=== PATIENT | female | born 1995 | race Two or more races ===

== ENCOUNTER 2016-09-09 07:05 | Inpatient (IN) | payer MEDICAID ==
[2016-09-09] MEDS ORDERED: Misoprostol 25 MCG (1/4 of 100 MCG) Tab ONE ×2 (07:34→07:44)
[2016-09-09] MEDS ORDERED: Sodium Chloride 0.9% 10 ML Syringe FLUSH PRN (08:00)
[2016-09-09] MEDS ORDERED: Nalbuphine 20 MG/1 ML Amp IVPUSH PRN (08:00)
[2016-09-09] MEDS ORDERED: Ondansetron 4 MG/2 ML SDV IVPUSH PRN ×2 (08:00→11:01)
[2016-09-09] MEDS ORDERED: Misoprostol 100 MCG Tab VAG PRN (08:00)
[2016-09-09] MEDS ORDERED: Oxytocin/Lactated Ringers 10 UNIT/1,000 ML BAG IV SCH ×2 (08:00→22:30)
--- NOTE | 2016-09-09 08:10 | PCM.LDHP ---
L&D History of Present Illness - General Date of Service: 09/09/16 Admit Problem/Dx: Patient Status Order with Admit Dx/Problem 09/09/16 08:01 Patient Status [ADT] Routine Admission Diagnosis/Problem Admission Diagnosis/Problem Normal Source of Information: Patient History Limitations: Reports: No limitations - History of Present Illness Introduction:: Patient is a 21 y/o at 40 6/7 wks presents for IOL for dates. Doing well today. No cramping or signs of labor. No other concerns. - Related Data Allergies/Adverse Reactions: Allergies Allergy/AdvReac Type Severity Reaction Status Date / Time No Known Allergies Allergy Verified 02/17/16 18:00 Home Medications: Home Meds . 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 LMP (Approximate): Social & Family History - Family History Family Medical History: Noncontributory - Tobacco Use Smoking Status *Q: Former Smoker Years of Tobacco use: 7 - Alcohol Use Alcohol Use History: No Days Per Week of Alcohol Use: 0 - Recreational Drug Use Recreational Drug Use: No H&P Review of Systems - Review of Systems: Review Of Systems: See Below General: Reports: no symptoms Pulmonary: Reports: No Symptoms Cardiovascular: Reports: no symptoms Gastrointestinal: Reports: No symptoms Genitourinary: Reports: no symptoms Musculoskeletal: Reports: no symptoms Psychiatric: Reports: no symptoms Neurological: Reports: No Symptoms L&D Exam - Exam Exam: See Below - Vital Signs Vital Signs: Last Vital Signs Temp 36.7 C 09/09/16 07:12 Pulse Resp 20 09/09/16 07:12 BP 120/65 09/09/16 07:12 Pulse Ox 97 09/09/16 07:12 Weight: 113.852 kg - OB Specific Contraction Intensity: Irritability movement: active heart tones: present heart tones per min: 140 Heart Rate (FHR) Variability: Moderate (6-25 bmp) Presentation: Vertex - Sánchez Score Sánchez Score Cervix Position: Midposition Sánchez Score Consistency: Soft Sánchez Score Effacement: 51-70% Sánchez Score Dilation: 1-2 cm Sánchez Score Infant's Station: -2 Sánchez Score Total: 7 - Exam General: alert, oriented, cooperative Lungs: Clear to auscultation, Normal respiratory effort Cardiovascular: regular rate, regular rhythm Abdomen: soft Genitourinary: Normal external exam Extremities: normal inspection Skin: warm, dry, intact - Problem List (1) 41 weeks gestation of SNOMED Code(s): 84390184 ICD Code: Z3A.41 - 41 WEEKS GESTATION OF Status: Acute Current Visit: Yes (2) Elective induction of labor planned SNOMED Code(s): 617792151 ICD Code: [id number] - Status: Acute Current Visit: Yes Problem List Initiated/Reviewed/Updated: Yes Orders Last 24hrs: Active Orders 24 hr Category Date Time Status Patient Status [ADT] Routine ADT 09/09/16 08:01 Ordered Communication Order [RC] ASDIRECTED Care 09/09/16 08:00 Ordered Communication Order [RC] ASDIRECTED Care 09/09/16 08:00 Ordered Communication Order [RC] ASDIRECTED Care 09/09/16 08:00 Ordered Monitoring [RC] INTERMITTENT Care 09/09/16 08:00 Ordered Notify Provider [RC] ASDIRECTED Care 09/09/16 08:00 Ordered Notify Provider [RC] PRN Care 09/09/16 08:00 Ordered Peripheral IV Care [RC] . DIRECTED Care 09/09/16 08:01 Ordered Up ad Joan [RC] ASDIRECTED Care 09/09/16 08:00 Ordered Vaginal Exam [RC] ASDIRECTED Care 09/09/16 08:00 Ordered Vital Signs [RC] ASDIRECTED Care 09/09/16 08:00 Ordered Regular Diet [DIET] Diet 09/09/16 Breakfast Ordered CBC W/O DIFF,HEMOGRAM [HEME] Routine Lab 09/09/16 08:00 Ordered TYPE AND SCREEN [BBK] Routine Lab 09/09/16 08:00 Ordered Lactated Ringers [Ringers, Lactated] 1,000 ml Med 09/09/16 08:00 Ordered IV ASDIRECTED Misoprostol [Cytotec] Med 09/09/16 08:00 Ordered 25 mcg VAG Q4H PRN Nalbuphine [Nubain] Med 09/09/16 08:00 Ordered 10 mg IVPUSH Q2H PRN Ondansetron [Zofran] Med 09/09/16 08:00 Ordered 4 mg IVPUSH Q4H PRN Oxytocin/Lactated Ringers [Pitocin in LR 10 Units/1,000 Med 09/09/16 08:00 Ordered ML] 10 unit in 1,000 ml IV TITRATE Sodium Chloride 0.9% [Saline Flush] Med 09/09/16 08:00 Ordered 10 ml FLUSH ASDIRECTED PRN Peripheral IV Insertion Adult [OM.PC] Routine Oth 09/09/16 08:00 Ordered Resuscitation Status Routine Resus Stat 09/09/16 08:00 Ordered Assessment/Plan Comment:: 21 y/o at 40 6/7 wks presents for IOL for dates * CBC and T&S * GBS negative, no need for antibiotics * Induction to be started with watson bulb and cytotec. Will switch to pitocin when cervix more favorable * Pain management per patient preference * Anticipate
[2016-09-09] MEDS ORDERED: fentaNYL 100 MCG/2 ML SDV EPIDUR PRN (11:01)
[2016-09-09] MEDS ORDERED: ePHEDrine 50 MG/ML SDV IVPUSH PRN (11:01)
[2016-09-09] MEDS ORDERED: diphenhydrAMINE 50 MG/ML SDV IVPUSH PRN (11:01)
[2016-09-09] MEDS ORDERED: Bupivacaine/fentaNYL/NS 100 ML Bag EPIDUR SCH (11:15)
--- NOTE | 2016-09-09 11:16 | PCM.PREANE ---
Preanesthetic Assessment - Anesthesia/Transfusion/Family Hx Anesthesia History: No Prior Anesthesia Transfusion History: No Prior Transfusion(s) - Review of Systems General: No Symptoms Pulmonary: No Symptoms Cardiovascular: No Symptoms Gastrointestinal: No symptoms Neurological: No Symptoms Other: Reports: None - Physical Assessment O2 Sat by Pulse Oximetry: 97 Respiratory Rate: 20 Vital Signs: Last Vital Signs Temp 98.0 F 09/09/16 07:12 Pulse Resp 20 09/09/16 07:12 BP 120/65 09/09/16 07:12 Pulse Ox 97 09/09/16 07:12 Height: 5 ft Weight: 113.852 kg ASA Class: 2 Mental Status: Alert & Oriented x3 Airway Class: Mallampati = 1 Dentition: Reports: Normal Dentition Thyro-Mental Finger Breadths: 3 Mouth Opening Finger Breadths: 3 ROM/Head Extension: Full Lungs: Clear to auscultation, Normal respiratory effort Cardiovascular: Regular Rate, Regular Rhythm, No Murmurs - Lab Values: Laboratory Last Values WBC 13.51 K/mm3 (3.98-10.04) H 09/09/16 08:16 RBC 3.92 M/mm3 (3.98-5.22) L 09/09/16 08:16 Hgb 11.6 gm/L (11.2-15.7) 09/09/16 08:16 Hct 34.6 % (34.1-44.9) 09/09/16 08:16 MCV 88.3 fl (79.4-94.8) 09/09/16 08:16 MCH 29.6 pg (25.6-32.2) 09/09/16 08:16 MCHC 33.5 g/dl (32.2-35.5) 09/09/16 08:16 RDW Std Deviation 40.4 fL (36.4-46.3) 09/09/16 08:16 Plt Count 211 K/mm3 (182-369) 09/09/16 08:16 MPV 11.2 fl (9.4-12.3) 09/09/16 08:16 Blood Type O POSITIVE 09/09/16 08:16 Gel Antibody Screen Negative 09/09/16 08:16 - Allergies Allergies/Adverse Reactions: Allergies Allergy/AdvReac Type Severity Reaction Status Date / Time No Known Allergies Allergy Verified 02/17/16 18:00 - Blood Blood Available: No - Acknowledgements Anesthesia Type Planned: Epidural Pt an Appropriate Candidate for the Planned Anesthesia: Yes Alternatives and Risks of Anesthesia Discussed w Pt/Guardian: Yes Pt/Guardian Understands and Agrees with Anesthesia Plan: Yes PreAnesthesia Questionnaire - Past Health History Medical/Surgical History: Denies Medical/Surgical History Respiratory History: Reports: Asthma Gastrointestinal History: Reports: GERD (with preg) 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 [No Known Home Meds] 02/17/16 [History] metroNIDAZOLE [Metrogel-Vaginal] 70 gm VG BEDTIME #5 gel.w.appl 02/17/16 [Rx] - CURRENT (IN HOUSE) MEDS Current Meds: Current Medications Diphenhydramine HCl (Benadryl) 25 mg IVPUSH Q6H PRN PRN Reason: Pruritis Ephedrine Sulfate (Ephedrine Sulfate) 5 mg IVPUSH ASDIRECTED PRN PRN Reason: Hypotension Fentanyl (Sublimaze) 100 mcg EPIDUR Q3H PRN PRN Reason: Pain Fentanyl/Bupivacaine HCl (Fentanyl/Bupivacaine/Ns 2 Mcg-0.125% 100 Ml) 100 ml EPIDUR ASDIRECTED TAL Lactated Ringer's (Ringers, Lactated) 1,000 mls @ 40 mls/hr IV ASDIRECTED TAL Oxytocin/Lactated Ringer's (Pitocin In Lr 10 Units/1,000 Ml) 10 unit in 1,000 mls @ 500 mls/hr IV TITRATE TAL PRN Reason: Protocol Misoprostol (Cytotec) 25 mcg VAG Q4H PRN PRN Reason: cervical ripening Stop: 09/09/16 16:01 Nalbuphine HCl (Nubain) 10 mg IVPUSH Q2H PRN PRN Reason: Pain (moderate 4-6) Ondansetron HCl (Zofran) 4 mg IVPUSH Q4H PRN PRN Reason: Nausea/Vomiting Ondansetron HCl (Zofran) 4 mg IVPUSH ONETIME PRN PRN Reason: Nausea/Vomiting Sodium Chloride (Saline Flush) 10 ml FLUSH ASDIRECTED PRN PRN Reason: Keep Vein Open Discontinued Medications Misoprostol (Cytotec) Confirm Administered Dose 25 mcg .ROUTE .STK-MED ONE Stop: 09/09/16 07:35 Last Admin: 09/09/16 07:51 Dose: 25 mcg Misoprostol (Cytotec) Confirm Administered Dose 25 mcg .ROUTE .STK-MED ONE Stop: 09/09/16 07:45 Last Admin: 09/09/16 10:08 Dose: Not Given Preanesthetic Assessment - ANESTHESIA/TRANSFUSION/FAMILY HX Family History of Anesthesia Reaction: No - PHYSICAL ASSESSMENT O2 Sat by Pulse Oximetry: 97 RR: 20 Vital Signs: Last Vital Signs Temp 98.0 F 09/09/16 07:12 Pulse Resp 20 09/09/16 07:12 BP 120/65 09/09/16 07:12 Pulse Ox 97 09/09/16 07:12 Height: 5 ft Weight: 113.852 kg - LAB Values: Laboratory Last Values WBC 13.51 K/mm3 (3.98-10.04) H 09/09/16 08:16 RBC 3.92 M/mm3 (3.98-5.22) L 09/09/16 08:16 Hgb 11.6 gm/L (11.2-15.7) 09/09/16 08:16 Hct 34.6 % (34.1-44.9) 09/09/16 08:16 MCV 88.3 fl (79.4-94.8) 09/09/16 08:16 MCH 29.6 pg (25.6-32.2) 09/09/16 08:16 MCHC 33.5 g/dl (32.2-35.5) 09/09/16 08:16 RDW Std Deviation 40.4 fL (36.4-46.3) 09/09/16 08:16 Plt Count 211 K/mm3 (182-369) 09/09/16 08:16 MPV 11.2 fl (9.4-12.3) 09/09/16 08:16 Blood Type O POSITIVE 09/09/16 08:16 Gel Antibody Screen Negative 09/09/16 08:16 - ALLERGIES Allergies/Adverse Reactions: Allergies Allergy/AdvReac Type Severity Reaction Status Date / Time No Known Allergies Allergy Verified 02/17/16 18:00
[2016-09-09] MEDS ORDERED: Misoprostol 25 MCG (1/4 of 100 MCG) Tab VAG PRN (11:42)
[2016-09-09] MEDS: Lactated Ringers 1,000 ML IV SCH ×6 (12:10→22:49)
--- NOTE | 2016-09-09 18:00 | PCM.PNLD ---
Labor Progress Note - VS & Meds Vital Signs: Last Vital Signs Temp 36.7 C 09/09/16 07:12 Pulse Resp 20 09/09/16 11:16 BP 120/65 09/09/16 07:12 Pulse Ox 97 09/09/16 11:16 Active Medications: Current Medications Diphenhydramine HCl (Benadryl) 25 mg IVPUSH Q6H PRN PRN Reason: Pruritis Ephedrine Sulfate (Ephedrine Sulfate) 5 mg IVPUSH ASDIRECTED PRN PRN Reason: Hypotension Fentanyl (Sublimaze) 100 mcg EPIDUR Q3H PRN PRN Reason: Pain Fentanyl/Bupivacaine HCl (Fentanyl/Bupivacaine/Ns 2 Mcg-0.125% 100 Ml) 100 ml EPIDUR ASDIRECTED TAL Lactated Ringer's (Ringers, Lactated) 1,000 mls @ 40 mls/hr IV ASDIRECTED TAL Last Admin: 09/09/16 16:04 Dose: 40 mls/hr Oxytocin/Lactated Ringer's (Pitocin In Lr 10 Units/1,000 Ml) 10 unit in 1,000 mls @ 500 mls/hr IV TITRATE [facility] PRN Reason: Protocol Misoprostol (Cytotec) 25 mcg VAG Q4H PRN PRN Reason: cervical ripening Stop: 09/09/16 19:43 Last Admin: 09/09/16 11:50 Dose: 25 mcg Nalbuphine HCl (Nubain) 10 mg IVPUSH Q2H PRN PRN Reason: Pain (moderate 4-6) Ondansetron HCl (Zofran) 4 mg IVPUSH Q4H PRN PRN Reason: Nausea/Vomiting Ondansetron HCl (Zofran) 4 mg IVPUSH ONETIME PRN PRN Reason: Nausea/Vomiting Sodium Chloride (Saline Flush) 10 ml FLUSH ASDIRECTED PRN PRN Reason: Keep Vein Open Discontinued Medications Misoprostol (Cytotec) Confirm Administered Dose 25 mcg .ROUTE .STK-MED ONE Stop: 09/09/16 07:35 Last Admin: 09/09/16 07:51 Dose: 25 mcg Misoprostol (Cytotec) Confirm Administered Dose 25 mcg .ROUTE .STK-MED ONE Stop: 09/09/16 07:45 Last Admin: 09/09/16 10:08 Dose: Not Given Misoprostol (Cytotec) 25 mcg VAG Q4H PRN PRN Reason: cervical ripening Stop: 09/09/16 16:01 - Uterine Contractions Uterine Monitoring Mode: External [place] Contraction Intensity: Irritability Uterine Resting Tone: Soft - Monitoring Monitor Mode: External Ultrasound Heart Rate (FHR) Baseline: 143 Heart Rate (FHR) Variability: Moderate (6-25 bmp) Decelerations: Intermittent (<50% x 20 min) Strip Review: Category I - Vaginal Exam Dilation (cm): 4 Station: -4 Cervical Position: Posterior - Labor Progress (Free Text) Labor Progress: [place] bulb out. 4 cm. Station high. AROM clear fluid. IUPC and FSE placed as it has been difficult to monitor and there was a period earlier this afternoon with occasional late decelerations but good variability. Post IUPC contractions q 1.2 minutes.
[2016-09-10] MEDS: Lactated Ringers 1,000 ML IV SCH (02:02)
--- NOTE | 2016-09-10 03:14 | PCM.DEL ---
L & D Note - General Info Date of Service: 09/10/16 - Delivery Note Labor: induced by ARM, induced by oxytocin Cervical Ripening Method: Balloon Device, Misoprostil Delivery Outcome: Livebirth Infant Delivery Method: Spontaneous Vaginal Delivery Infant Delivery Mode: Spontaneous Presentation: Vertex Nuchal cord: none Anesthesia Type: Epidural Amniotic Fluid Description: Clear Episiotomy Type: None Laceration: 1st degree Suture type: vicryl Suture size: 3-0 Placenta: intact, spontaneous Cord: 3 vessels Resuscitation needed: No Provider: Hermann Eli Score 1 min: 8 Score 5 min: 9 Delivery Comments (Free Text/Narrative):: Patient presented for IOL for post dates. Watson bulb and cytotec induction. AROM clear fluid after watson bulb expelled. Increased pitocin. Epidural for anesthesia. Progressed to complete with overall reassuring FHT. Stage 2- head delivered in controlled manner over intact perineum. Body and shoulders followed without difficulty. Mom to abdomen. Cord clamped and cut. Spontaneous cry. Cord blood collected. Placenta spontaneous intact. Small 1degree MLL repaired with 3-0 vicryl. - Patient Data Vitals - most recent: Last Vital Signs Temp 36.7 C 09/09/16 07:12 Pulse Resp 20 09/09/16 11:16 BP 120/65 09/09/16 07:12 Pulse Ox 97 09/09/16 11:16 Weight - most recent: 113.852 kg I&O - last 24 hours: Intake & Output 09/09/16 09/09/16 09/10/16 14:59 22:59 06:59 Intake Total 0 Balance 0 Lab Results last 24 hrs: Laboratory Results - last 24 hr 09/09/16 09/09/16 Range/Units 08:16 08:16 WBC 13.51 H (3.98-10.04) K/mm3 RBC 3.92 L (3.98-5.22) M/mm3 Hgb 11.6 (11.2-15.7) gm/L Hct 34.6 (34.1-44.9) % MCV 88.3 (79.4-94.8) fl MCH 29.6 (25.6-32.2) pg MCHC 33.5 (32.2-35.5) g/dl RDW Std Deviation 40.4 (36.4-46.3) fL Plt Count 211 (182-369) K/mm3 MPV 11.2 (9.4-12.3) fl Blood Type O POSITIVE Gel Antibody Screen Negative Med Orders - Current: Current Medications Diphenhydramine HCl (Benadryl) 25 mg IVPUSH Q6H PRN PRN Reason: Pruritis Ephedrine Sulfate (Ephedrine Sulfate) 5 mg IVPUSH ASDIRECTED PRN PRN Reason: Hypotension Fentanyl (Sublimaze) 100 mcg EPIDUR Q3H PRN PRN Reason: Pain Last Admin: 09/09/16 19:52 Dose: 100 mcg Fentanyl/Bupivacaine HCl (Fentanyl/Bupivacaine/Ns 2 Mcg-0.125% 100 Ml) 100 ml EPIDUR ASDIRECTED TAL Last Admin: 09/09/16 19:53 Dose: 100 ml Lactated Ringer's (Ringers, Lactated) 1,000 mls @ 40 mls/hr IV ASDIRECTED TAL Last Admin: 09/10/16 02:02 Dose: 40 mls/hr Oxytocin/Lactated Ringer's (Pitocin In Lr 10 Units/1,000 Ml) 10 unit in 1,000 mls @ 500 mls/hr IV TITRATE TAL PRN Reason: Protocol Oxytocin/Lactated Ringer's (Pitocin In Lr 10 Units/1,000 Ml) 10 unit in 1,000 mls @ 12 mls/hr IV TITRATE TAL; 2 MUNITS/MIN PRN Reason: Protocol Last Titration: 09/10/16 01:25 Dose: 0 munits/min, 0 mls/hr Nalbuphine HCl (Nubain) 10 mg IVPUSH Q2H PRN PRN Reason: Pain (moderate 4-6) Ondansetron HCl (Zofran) 4 mg IVPUSH Q4H PRN PRN Reason: Nausea/Vomiting Ondansetron HCl (Zofran) 4 mg IVPUSH ONETIME PRN PRN Reason: Nausea/Vomiting Sodium Chloride (Saline Flush) 10 ml FLUSH ASDIRECTED PRN PRN Reason: Keep Vein Open Discontinued Medications Misoprostol (Cytotec) Confirm Administered Dose 25 mcg .ROUTE .STK-MED ONE Stop: 09/09/16 07:35 Last Admin: 09/09/16 07:51 Dose: 25 mcg Misoprostol (Cytotec) Confirm Administered Dose 25 mcg .ROUTE .STK-MED ONE Stop: 09/09/16 07:45 Last Admin: 09/09/16 10:08 Dose: Not Given Misoprostol (Cytotec) 25 mcg VAG Q4H PRN PRN Reason: cervical ripening Stop: 09/09/16 16:01 Misoprostol (Cytotec) 25 mcg VAG Q4H PRN PRN Reason: cervical ripening Stop: 09/09/16 19:43 Last Admin: 09/09/16 11:50 Dose: 25 mcg - Problem List Review Problem List Initiated/Reviewed/Updated: Yes - My Orders Last 24 Hours: My Active Orders 09/09/16 22:30 Oxytocin/Lactated Ringers [Pitocin in LR 10 Units/1,000 ML] 10 unit in 1,000 ml IV TITRATE 09/10/16 02:53 Patient Status Manage Transfer [TRANSFER] Routine - Plan Plan:: 21 y/o at 40 6/7 wks presented for IOL for dates -routine cares
[2016-09-10] MEDS ORDERED: Docusate Sodium 100 MG Cap PO PRN (03:56)
[2016-09-10] MEDS ORDERED: Lanolin 100% Cream 7 GM Tube TOP PRN (03:56)
[2016-09-10] MEDS ORDERED: Witch Hazel Medicated Pads 100/Jar TOP PRN (03:56)
[2016-09-10] MEDS ORDERED: Benzocaine/Menthol 20%-0.5% Spray 56 GM Canister TOP PRN (03:56)
--- NOTE | 2016-09-10 08:43 | PCM48HPAN ---
Post Anesthesia Note - EVALUATION WITHIN 48HRS OF ANESTHETIC Vital Signs in Normal Range: Yes Patient Participated in Evaluation: Yes Respiratory Function Stable: Yes Airway Patent: Yes Cardiovascular Function Stable: Yes Hydration Status Stable: Yes Pain Control Satisfactory: Yes Nausea and Vomiting Control Satisfactory: Yes Mental Status Recovered: Yes
[2016-09-10] MEDS: Ibuprofen 600 MG Tab PO PRN ×2 (14:08→20:02)
[2016-09-11 05:33] VITALS: BP 120/64
[2016-09-11] MEDS ORDERED: Pneumococcal Polyvalent-23 Vaccine 0.5 ML SDV SUBCUT ONE (07:02)
--- NOTE | 2016-09-11 07:06 | PCM.DCSUM1 ---
Discharge Summary - Discharge Data Discharge Date: 09/11/16 Discharge Disposition: Home, Self-Care 01 Condition: Good - Patient Instructions Diet: Usual Diet as Tolerated Activity: No Strenuous Activities Driving: May Drive Today Notify Provider of: Fever, Increased Pain, Swelling and Redness, Drainage, Nausea and/or Vomiting - Discharge Plan Home Medications: Home Meds . [No Known Home Meds] 02/17/16 [History] metroNIDAZOLE [Metrogel-Vaginal] 70 gm VG BEDTIME #5 gel.w.appl 02/17/16 [Rx] Patient Handouts: Smoking Cessation, Tips for Success, [id number], Smoking Hazards Referrals: Lanie Alexander MD [Primary Care Provider] - (6 ) - Discharge Summary/Plan Comment DC Time >30 min.: No - General Info Date of Service: 09/11/16 Functional Status: Reports: pain controlled - Review of Systems General: Reports: No Symptoms HEENT: Reports: no symptoms Pulmonary: Reports: no symptoms Cardiovascular: Reports: No Symptoms Gastrointestinal: Reports: No symptoms Genitourinary: Reports: no symptoms Musculoskeletal: Reports: no symptoms Skin: Reports: no symptoms Neurological: Reports: No Symptoms Psychiatric: Reports: no symptoms - Patient Data Vitals - Most Recent: Last Vital Signs Temp 36.6 C 09/11/16 05:20 Pulse 79 09/11/16 05:20 Resp 15 09/11/16 05:20 BP 120/64 09/11/16 05:20 Pulse Ox 99 09/11/16 05:20 Weight - Most Recent: 113.852 kg Med Orders - Current: Current Medications Benzocaine/Menthol (Dermoplast Pain Relief [place]) 0 gm TOP ASDIRECTED PRN PRN Reason: Perineal Comfort Measure Diphenhydramine HCl (Benadryl) 25 mg IVPUSH Q6H PRN PRN Reason: Pruritis Docusate Sodium (Colace) 100 mg PO BID PRN PRN Reason: Constipation Emollient Ointment (Lansinoh Hpa) 0 gm TOP ASDIRECTED PRN PRN Reason: Sore Nipples Last Admin: 09/10/16 14:29 Dose: 1 applic Ephedrine Sulfate (Ephedrine Sulfate) 5 mg IVPUSH ASDIRECTED PRN PRN Reason: Hypotension Fentanyl (Sublimaze) 100 mcg EPIDUR Q3H PRN PRN Reason: Pain Last Admin: 09/09/16 19:52 Dose: 100 mcg Fentanyl/Bupivacaine HCl (Fentanyl/Bupivacaine/Ns 2 Mcg-0.125% 100 Ml) 100 ml EPIDUR ASDIRECTED TAL Last Admin: 09/09/16 19:53 Dose: 100 ml Lactated Ringer's (Ringers, Lactated) 1,000 mls @ 40 mls/hr IV ASDIRECTED TAL Last Admin: 09/10/16 02:02 Dose: 40 mls/hr Oxytocin/Lactated Ringer's (Pitocin In Lr 10 Units/1,000 Ml) 10 unit in 1,000 mls @ 500 mls/hr IV TITRATE TAL PRN Reason: Protocol Oxytocin/Lactated Ringer's (Pitocin In Lr 10 Units/1,000 Ml) 10 unit in 1,000 mls @ 12 mls/hr IV TITRATE TAL; 2 MUNITS/MIN PRN Reason: Protocol Last Titration: 09/10/16 01:25 Dose: 0 munits/min, 0 mls/hr Ibuprofen (Motrin) 600 mg PO Q6H PRN PRN Reason: Mild pain or fever Last Admin: 09/10/16 20:02 Dose: 600 mg Nalbuphine HCl (Nubain) 10 mg IVPUSH Q2H PRN PRN Reason: Pain (moderate 4-6) Ondansetron HCl (Zofran) 4 mg IVPUSH Q4H PRN PRN Reason: Nausea/Vomiting Ondansetron HCl (Zofran) 4 mg IVPUSH ONETIME PRN PRN Reason: Nausea/Vomiting Pneumococcal Polyvalent Vaccine (Pneumovax 23) 0.5 ml SUBCUT .ONCE ONE Stop: 09/11/16 07:03 Sodium Chloride (Saline Flush) 10 ml FLUSH ASDIRECTED PRN PRN Reason: Keep Vein Open Witch Vera (Tucks) 1 pad TOP ASDIRECTED PRN PRN Reason: Hemorrhoid pain Discontinued Medications Misoprostol (Cytotec) Confirm Administered Dose 25 mcg .ROUTE .STK-MED ONE Stop: 09/09/16 07:35 Last Admin: 09/09/16 07:51 Dose: 25 mcg Misoprostol (Cytotec) Confirm Administered Dose 25 mcg .ROUTE .STK-MED ONE Stop: 09/09/16 07:45 Last Admin: 09/09/16 10:08 Dose: Not Given Misoprostol (Cytotec) 25 mcg VAG Q4H PRN PRN Reason: cervical ripening Stop: 09/09/16 16:01 Misoprostol (Cytotec) 25 mcg VAG Q4H PRN PRN Reason: cervical ripening Stop: 09/09/16 19:43 Last Admin: 09/09/16 11:50 Dose: 25 mcg - Exam General: Reports: alert, oriented HEENT: Reports: Pupils equal, Pupils reactive, EOMI, Mucous membr. moist/pink Neck: Reports: supple Lungs: Reports: Clear to auscultation, Normal respiratory effort Cardiovascular: Reports: Regular Rate, Regular Rhythm Abdomen: Reports: bowel sounds present, soft, no tenderness, no distension (Female) Exam: Normal external exam, Normal speculum exam, Normal bimanual exam Extremities: Reports: no edema, normal pulses Skin: Reports: warm, dry, intact Wound/Incisions: Reports: healing well Neurological: Reports: no new focal deficit Psy/Mental Status: Reports: alert, normal affect, normal mood *Q Meaningful Use (DIS) - VTE *Q VTE Criteria *Q: - Stroke *Q Stroke Criteria *Q: - AMI *Q AMI Criteria *Q:
[2016-09-11] MEDS ORDERED: Bupivacaine 0.25% 10 ML SDV ONE (09:00)
== END 2016-09-11 10:45 | disposition home or self-care (01) | DRG 775 ==
LOC: JD.OBCHECK 07:05 → JD.OB 07:11 → OBSVTOIN 09-10 02:30
PROVIDERS: ADMIT Obstetrics & Gynecology; ATTEND Obstetrics & Gynecology
PROC: 10E0XZZ Delivery of Products of Conception, External Approach (ICD-10-PCS; principal; 2016-09-10)
PROC: 0HQ9XZZ Repair Perineum Skin, External Approach (ICD-10-PCS; 2016-09-10)
PROC: 3E033VJ Introduction of Other Hormone into Peripheral Vein, Percutaneous Approach (ICD-10-PCS; 2016-09-10)
PROC: 10907ZC Drainage of Amniotic Fluid, Therapeutic from Products of Conception, Via Natural or Artificial Opening (ICD-10-PCS; 2016-09-10)
PROC: 00HU33Z Insertion of Infusion Device into Spinal Canal, Percutaneous Approach (ICD-10-PCS; 2016-09-10)
PROC: 3E0R3CZ (ICD-10-PCS; 2016-09-10)
DX: O48.0 Post-term pregnancy (principal); Z3A.41 41 weeks gestation of pregnancy; O70.0 First degree perineal laceration during delivery; Z37.0 Single live birth; Z87.891 Personal history of nicotine dependence
CPT/HCPCS: 01967; 36415; 85027; 86850; 86900; 86901; A9270-GY; J2590; J3010; J7120

== ENCOUNTER 2018-08-18 15:14 | Emergency (ER) | payer MEDICAID ==
[2018-08-18 15:43] VITALS: BP 107/60
--- NOTE | 2018-08-18 16:06 | EDM.PDOC ---
<Sabrina Poe - Last Filed: 08/18/18 16:06> ED HPI GENERAL MEDICAL PROBLEM - General Chief Complaint: Skin Complaint Stated Complaint: RASH ON FACE AND NECK Time Seen by Provider: 08/18/18 15:44 Source of Information: Reports: Patient History Limitations: Reports: No Limitations, Altered Mental Status - History of Present Illness INITIAL COMMENTS - FREE TEXT/NARRATIVE: 23-year-old female presents emergency room chief complaints of "rash on her face." She states that earlier she vomited quite heavily. She states that about 12:00 she noticed what she thinks is a rash on her face. She denies any other symptoms she denies headache chills fever or difficulty swallowing or breathing. She does report that she is 3 months . She reports that she' s been healthy otherwise. She's not been around any sick contacts. Onset: Today, Sudden Onset Date: 08/18/18 Onset Time: 12:00 Duration: Hour(s): Location: Reports: Face Treatments LITIGATION SPECIALIST: Reports: Other (see below) Other Treatments LITIGATION SPECIALIST: none - Related Data Allergies Allergy/AdvReac Type Severity Reaction Status Date / Time No Known Allergies Allergy Verified 02/17/16 18:00 Home Meds: Home Meds . [No Known Home Meds] 02/17/16 [History] Past Medical History - Past Health History Medical/Surgical History: Denies Medical/Surgical History Respiratory History: Reports: Asthma Gastrointestinal History: Reports: GERD [employer] History: Reports: Other [employer] History: 2013 Psychiatric History: Reports: None Oncologic (Cancer) History: Reports: None - Past Surgical History Respiratory Surgical History: Reports: None - History Comment History Comment: vits Social & Family History - Family History Family Medical History: Noncontributory - Tobacco Use Smoking Status *Q: Never Smoker - Caffeine Use Caffeine Use: Reports: Tea - Recreational Drug Use Recreational Drug Use: No ED ROS GENERAL - Review of Systems Review Of Systems: ROS reveals no pertinent complaints other than HPI. Constitutional: Denies: Fever, Chills HEENT: Reports: No Symptoms. Denies: Throat Pain, Throat Swelling Respiratory: Reports: No Symptoms. Denies: Shortness of Breath Cardiovascular: Denies: Chest Pain Skin: Reports: Other ("Rash on her face.") ED EXAM, SKIN/RASH Exam Limited By: No Limitations General Appearance: Alert, WD/WN, No Apparent Distress Ears: Normal External Exam, Normal Canal, Hearing Grossly Normal, Normal TMs Nose: Normal Inspection, Normal Mucosa, No Blood Throat/Mouth: Normal Inspection, Normal Lips, Normal Teeth, Normal Gums, Normal Oropharynx, Normal Voice, No Airway Compromise Head: Atraumatic, Normocephalic Neck: Normal Inspection, Supple, Non-Tender, Full Range of Motion Respiratory/Chest: No Respiratory Distress, Lungs Clear, Normal Breath Sounds, No Accessory Muscle Use, Chest Non-Tender Cardiovascular: Normal Peripheral Pulses, Regular Rate, Rhythm, No Edema, No Gallop, No JVD, No Murmur, No Rub Neurological: Alert, Oriented, CN II-XII Intact, Normal Cognition, Normal Gait, Normal Reflexes, No Motor/Sensory Deficits Psychiatric: Normal Affect, Normal Mood Skin: Warm, Dry, Intact, Petechiae (Facial blanchable petechiae ), Other Location, Skin: Face Characteristics: Macular Lymphatic: No Adenopathy Course - Vital Signs Last Recorded V/S: Last Vital Signs Temp 36.0 C 08/18/18 15:42 Pulse 81 08/18/18 15:42 Resp 20 08/18/18 15:42 BP 107/60 08/18/18 15:42 Pulse Ox 100 08/18/18 15:42 - Re-Assessments/Exams Free Text/Narrative Re-Assessment/Exam: 08/18/18 16:08 Did not feel the patient needs further tests at this time. I feel that her petechia in her face is due to hyperemesis episode earlier today. Departure - Departure Disposition: Home, Self-Care 01 Condition: Good Clinical Impression: Perifollicular petechiae of skin - Discharge Information *PRESCRIPTION DRUG MONITORING PROGRAM REVIEWED*: Not Applicable *COPY OF PRESCRIPTION DRUG MONITORING REPORT IN PATIENT DUONG: Not Applicable Referrals: Lanie Alexander MD [Primary Care Provider] - Forms: ED Department Discharge Additional Instructions: Given diagnoses petechiae to her face. I feel that this is due to her hyperemesis that she had earlier today. This condition will improve over time. I suggested to follow-up with her PCP. Do not hesitate to return to the emergency room for any new or acutely worsening symptoms. <Herberth Mckeon - Last Filed: 08/18/18 17:02> ED EXAM, SKIN/RASH Exam: See Below Course - Re-Assessments/Exams Free Text/Narrative Re-Assessment/Exam: 08/18/18 17:01 I personally performed evaluation and was involved with medical decision making have reviewed the history physical as well Departure - Departure Time of Disposition: 17:02
== END 2018-08-18 16:37 | disposition home or self-care (01) ==
LOC: JD.ED 15:14
DX: R23.3 Spontaneous ecchymoses (principal)
CPT/HCPCS: 99282

== ENCOUNTER 2018-09-03 06:27 | Emergency (ER) | payer MEDICAID ==
[2018-09-03 06:42] VITALS: BP 112/75
[2018-09-03] MEDS ORDERED: Albuterol 0.083% 2.5 MG/3 ML Neb Soln NEB ONE (07:06)
--- NOTE | 2018-09-03 07:14 | EDM.PDOC ---
ED HPI GENERAL MEDICAL PROBLEM - General Chief Complaint: Respiratory Problem Stated Complaint: WHEEZING AND SOB 14 WEEKS PREG Time Seen by Provider: 09/03/18 06:58 Source of Information: Reports: Patient, RN Notes Reviewed - History of Present Illness INITIAL COMMENTS - FREE TEXT/NARRATIVE: 23 year old female comes in with onset of wheezing last night, continued wheezing this morning. Has not been ill with cough, fever, sore throat or nasal sonu. Hx of asthma but has not had sx for many years. Is about 14 wks . 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 Denies: Cough Cardiovascular: Denies: Chest Pain GI/Abdominal: Denies: Abdominal Pain, Nausea, Vomiting Musculoskeletal: Reports: No Symptoms Skin: Reports: No Symptoms Neurological: Reports: No Symptoms ED EXAM, GENERAL - Physical Exam Exam: See Below General Appearance: Alert, No Apparent Distress Throat/Mouth: Normal Inspection, Normal Oropharynx Head: Atraumatic. No: Facial Swelling Neck: Supple. No: Lymphadenopathy (L), Lymphadenopathy (R) Respiratory/Chest: Respiratory Distress (mild tachypnea), Wheezing (chasity mild) Cardiovascular: Regular Rate, Rhythm GI/Abdominal: Soft, Non-Tender Extremities: Normal Inspection. No: Pedal Edema Neurological: Alert, Oriented, No Motor/Sensory Deficits Skin Exam: Warm, Dry, Normal Color Course - Vital Signs Last Recorded V/S: Last Vital Signs Temp 97.6 F 09/03/18 06:37 Pulse 80 09/03/18 06:37 Resp 20 09/03/18 06:37 BP 112/75 09/03/18 06:37 Pulse Ox 98 09/03/18 07:23 - Orders/Labs/Meds Orders: Active Orders 24 hr Category Date Time Status RT Aerosol Therapy [RC] ASDIRECTED Care 09/03/18 07:06 Active Meds: Medications Discontinued Medications Generic Name Dose Route Start Last Admin Trade Name Freq PRN Reason Stop Dose Admin Albuterol 2.5 mg 09/03/18 07:06 09/03/18 07:23 Proventil Neb Soln NEB 09/03/18 07:07 2.5 mg ONETIME ONE Administration Departure - Departure Time of Disposition: 07:54 Disposition: Home, Self-Care 01 Clinical Impression: Exacerbation of asthma Qualifiers: Asthma severity: unspecified severity Asthma persistence: unspecified Qualified Code(s): J45.901 - Unspecified asthma with (acute) exacerbation - Discharge Information Prescriptions: Albuterol Sulfate [Albuterol Sulfate Hfa] 8.5 gm IH Q4HR PRN #1 hfa.aer.ad PRN Reason: Wheezing Instructions: Asthma, Adult, [id number] Referrals: Lanie Alexander MD [Primary Care Provider] - Forms: ED Department Discharge Additional Instructions: albuterol inhaler 2 puffs q 4 to 6 hr if needed for further wheezing or difficulty breathing. Follow up clinic if not much better within 3 to 4 days as expected. Reurn to ED as needed if symptoms worsening in any way. - My Orders Last 24 Hours: My Active Orders 09/03/18 07:06 RT Aerosol Therapy [RC] ASDIRECTED - Assessment/Plan Last 24 Hours: My Active Orders 09/03/18 07:06 RT Aerosol Therapy [RC] ASDIRECTED
== END 2018-09-03 08:08 | disposition home or self-care (01) ==
LOC: JD.ED 06:27
DX: J45.901 Unspecified asthma with (acute) exacerbation (principal)
CPT/HCPCS: 94640; 99283; 99283-25

== ENCOUNTER 2019-03-01 13:39 | Inpatient (IN) | payer MEDICAID ==
[~2019-03-01 13:39] MED LIST: Bupivacaine 0.25% 10 ML SDV ONE
[2019-03-01] MEDS ORDERED: Ondansetron 4 MG/2 ML SDV IVPUSH PRN (14:37)
[2019-03-01] MEDS ORDERED: Nalbuphine 10 MG/1 ML Vial IVPUSH PRN (14:37)
[2019-03-01] MEDS ORDERED: Sodium Chloride 0.9% 10 ML Syringe FLUSH PRN (14:37)
--- NOTE | 2019-03-01 14:39 | PCM.LDHP ---
L&D History of Present Illness - General Date of Service: 03/01/19 Admit Problem/Dx: Patient Status Order with Admit Dx/Problem 03/01/19 13:52 Patient Status [ADT] Routine 03/01/19 14:37 Patient Status [ADT] Routine Admission Diagnosis/Problem Admission Diagnosis/Problem Source of Information: Patient History Limitations: Reports: No Limitations - History of Present Illness Introduction:: Patient is a 23 y/o at 40 0/7 wks gestation who presents in labor. Seen earlier this week and only 0.5-1cm. Contractions started this AM around 0400. Have been getting stronger since onset. Now about every 5 minutes. 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 LMP (Approximate): - Past Surgical History Other Surgical History Comment: No past surgical history Social & Family History - Family History Family Medical History: Noncontributory - Tobacco Use Smoking Status *Q: Former Smoker - Caffeine Use Caffeine Use: Reports: Tea - Alcohol Use Alcohol Use History: No - Recreational Drug Use Recreational Drug Use: No H&P Review of Systems - Review of Systems: Review Of Systems: See Below General: Reports: No Symptoms Pulmonary: Reports: No Symptoms Cardiovascular: Reports: No Symptoms Gastrointestinal: Reports: Abdominal Pain (contractions ) Genitourinary: Reports: No Symptoms Musculoskeletal: Reports: No Symptoms Psychiatric: Reports: No Symptoms Neurological: Reports: No Symptoms L&D Exam - Exam Exam: See Below - Vital Signs Vital Signs: Last Vital Signs Temp 36.7 C 03/01/19 13:56 Pulse 82 03/01/19 13:56 Resp 18 03/01/19 13:56 BP 128/77 03/01/19 13:56 Pulse Ox 97 03/01/19 13:56 - OB Specific Contraction Intensity: Moderate Movement: Active Heart Tones: Present Heart Tones per Min: 130 Heart Rate (FHR) Variability: Moderate (6-25 bmp) Presentation: Vertex - Sánchez Score Sánchez Score Cervix Position: Midposition Sánchez Score Consistency: Soft Sánchez Score Effacement: 51-70% Sánchez Score Dilation: 3-4 cm Sánchez Score Infant's Station: -2 Sánchez Score Total: 8 - Exam General: Alert, Oriented, Cooperative Lungs: Clear to Auscultation, Normal Respiratory Effort Cardiovascular: Regular Rate, Regular Rhythm GI/Abdominal Exam: Soft, Non-Tender Genitourinary: Normal external exam Extremities: Normal Inspection Skin: Warm, Dry, Intact - Problem List (1) 40 weeks gestation of SNOMED Code(s): 78650247 ICD Code: Z3A.40 - 40 WEEKS GESTATION OF Status: Acute Current Visit: Yes Problem List Initiated/Reviewed/Updated: Yes Orders Last 24hrs: Active Orders 24 hr Category Date Time Status Patient Status [ADT] Routine ADT 03/01/19 13:52 Active Patient Status [ADT] Routine ADT 03/01/19 14:37 Ordered Activity as Tolerated [RC] PFP Care 03/01/19 14:37 Ordered Communication Order [RC] ASDIRECTED Care 03/01/19 14:37 Ordered Heart Tones [RC] ASDIRECTED Care 03/01/19 14:38 Ordered Non Stress Test [RC] PER UNIT ROUTINE Care 03/01/19 13:52 Active Notify Provider [RC] PFP Care 03/01/19 14:37 Ordered Notify Provider [RC] PRN Care 03/01/19 14:37 Ordered Peripheral IV Care [RC] . DIRECTED Care 03/01/19 14:38 Ordered Vital Signs [RC] PER UNIT ROUTINE Care 03/01/19 13:52 Active Vital Signs [RC] PER UNIT ROUTINE Care 03/01/19 14:37 Ordered Regular Diet [DIET] Diet 03/01/19 Lunch Ordered CBC W/O DIFF,HEMOGRAM [HEME] Routine Lab 03/01/19 14:37 Ordered RAPID PLASMA REAGIN,RPR [CHEM] Routine Lab 03/01/19 14:37 Ordered TYPE AND SCREEN [BBK] Routine Lab 03/01/19 14:37 Ordered Lactated Ringers [Ringers, Lactated] 1,000 ml Med 03/01/19 14:45 Ordered IV ASDIRECTED Nalbuphine [Nubain] Med 03/01/19 14:37 Ordered 10 mg IVPUSH Q2H PRN Ondansetron [Zofran] Med 03/01/19 14:37 Ordered 4 mg IVPUSH Q4H PRN Oxytocin/Lactated Ringers [Pitocin in LR 10 Units/1,000 Med 03/01/19 14:45 Ordered ML] 10 unit in 1,000 ml IV .CONTINUOUS Sodium Chloride 0.9% [Saline Flush] Med 03/01/19 14:37 Ordered 10 ml FLUSH ASDIRECTED PRN Electronic Heart Tones Ext w TOCO [WOMSER] Oth 03/01/19 14:37 Ordered Routine Electronic Heart Tones Internal [WOMSER] Per Unit Ot 03/01/19 14:37 Ordered Routine Peripheral IV Insertion Adult [OM.PC] Routine Ot 03/01/19 14:37 Ordered Resuscitation Status Routine Resus Stat 03/01/19 13:52 Ordered Assessment/Plan Comment:: 23 y/o at 40 0/7 wks who presents in labor. Was only 0.5-1 cm earlier this week. Now 3-4 cm. * Labs * GBS negative, no need for antibiotics * Pain management per patient preference * Anticipate
[2019-03-01] MEDS ORDERED: Oxytocin/Lactated Ringers 10 UNIT/1,000 ML BAG IV SCH (14:45)
[2019-03-01] MEDS: Lactated Ringers 1,000 ML IV SCH ×2 (15:39→16:02)
[2019-03-01] MEDS ORDERED: diphenhydrAMINE 50 MG/ML SDV IVPUSH PRN (15:52)
[2019-03-01] MEDS ORDERED: fentaNYL 100 MCG/2 ML SDV EPIDUR PRN (15:52)
[2019-03-01] MEDS ORDERED: ePHEDrine 50 MG/ML SDV IVPUSH PRN (15:52)
[2019-03-01] MEDS ORDERED: fentaNYL/Bupivacaine in NS PF 2 MCG-0.125% 250 ML Premix EPIDUR PRN (15:52)
--- NOTE | 2019-03-01 16:44 | PCM.PREANE ---
Preanesthetic Assessment - Anesthesia/Transfusion/Family Hx Anesthesia History: No Prior Anesthesia Family History of Anesthesia Reaction: No Transfusion History: No Prior Transfusion(s) - Review of Systems General: No Symptoms Pulmonary: No Symptoms (Asthma, controlled. ) Cardiovascular: No Symptoms Gastrointestinal: Other (GERD) Neurological: No Symptoms Other: Reports: None (Morbid Obesity BMI 49.8) - Physical Assessment Vital Signs: Last Vital Signs Temp 36.7 C 03/01/19 13:56 Pulse 82 03/01/19 13:56 Resp 18 03/01/19 13:56 BP 128/77 03/01/19 13:56 Pulse Ox 97 03/01/19 13:56 Height: 1.52 m Weight: 115.666 kg ASA Class: 3 Mental Status: Alert & Oriented x3 Airway Class: Mallampati = 2 Dentition: Reports: Normal Dentition Thyro-Mental Finger Breadths: 3 Mouth Opening Finger Breadths: 3 ROM/Head Extension: Full Lungs: Clear to Auscultation, Normal Respiratory Effort Cardiovascular: Regular Rate, Regular Rhythm - Lab Values: Laboratory Last Values WBC 14.30 K/mm3 (3.98-10.04) H 03/01/19 14:50 RBC 4.21 M/mm3 (3.98-5.22) 03/01/19 14:50 Hgb 12.1 gm/dl (11.2-15.7) 03/01/19 14:50 Hct 36.3 % (34.1-44.9) 03/01/19 14:50 MCV 86.2 fl (79.4-94.8) 03/01/19 14:50 MCH 28.7 pg (25.6-32.2) 03/01/19 14:50 MCHC 33.3 g/dl (32.2-35.5) 03/01/19 14:50 RDW Std Deviation 40.8 fL (36.4-46.3) 03/01/19 14:50 Plt Count 256 K/mm3 (182-369) 03/01/19 14:50 MPV 11.3 fl (9.4-12.3) 03/01/19 14:50 Blood Type O POSITIVE 03/01/19 14:50 Gel Antibody Screen Negative 03/01/19 14:50 - Allergies Allergies/Adverse Reactions: Allergies Allergy/AdvReac Type Severity Reaction Status Date / Time No Known Allergies Allergy Verified 02/17/16 18:00 - Acknowledgements Anesthesia Type Planned: Epidural Pt an Appropriate Candidate for the Planned Anesthesia: Yes Alternatives and Risks of Anesthesia Discussed w Pt/Guardian: Yes Pt/Guardian Understands and Agrees with Anesthesia Plan: Yes PreAnesthesia Questionnaire - Past Health History Medical/Surgical History: Denies Medical/Surgical History Respiratory History: Reports: Asthma Gastrointestinal History: Reports: GERD 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 Psychiatric History: Reports: None Oncologic (Cancer) History: Reports: None - Past Surgical History Other Surgical History Comment: No past surgical history - History Comment History Comment: vits - SUBSTANCE USE Smoking Status *Q: Former Smoker Recreational Drug Use History: No - HOME MEDS Home Medications: Home Meds Albuterol Sulfate [Albuterol Sulfate Hfa] 8.5 gm IH Q4HR PRN #1 hfa.aer.ad 09/03 [Rx] - CURRENT (IN HOUSE) MEDS Current Meds: Current Medications Diphenhydramine HCl (Benadryl) 25 mg IVPUSH Q6H PRN PRN Reason: pruritis Ephedrine Sulfate (Ephedrine Sulfate) 5 mg IVPUSH ASDIRECTED PRN PRN Reason: Hypotension Fentanyl (Sublimaze) 100 mcg EPIDUR Q3H PRN PRN Reason: Pain Last Admin: 03/01/19 16:31 Dose: 100 mcg Fentanyl/Bupivacaine HCl (Fentanyl/Bupivacaine/Ns 2 Mcg-0.125% 250 Ml) 2 mcg EPIDUR CONTINUOUS PRN PRN Reason: Pain Last Admin: 03/01/19 16:31 Dose: 2 mcg Lactated Ringer's (Ringers, Lactated) 1,000 mls @ 100 mls/hr IV ASDIRECTED TAL Last Admin: 03/01/19 16:02 Dose: 100 mls/hr Oxytocin/Lactated Ringer's (Pitocin In Lr 10 Units/1,000 Ml) 10 unit in 1,000 mls @ 500 mls/hr IV .CONTINUOUS TAL Nalbuphine HCl (Nubain) 10 mg IVPUSH Q2H PRN PRN Reason: Pain Ondansetron HCl (Zofran) 4 mg IVPUSH Q4H PRN PRN Reason: Nausea/Vomiting Sodium Chloride (Saline Flush) 10 ml FLUSH ASDIRECTED PRN PRN Reason: Keep Vein Open
--- NOTE | 2019-03-01 17:40 | PCM.DEL ---
L & D Note - General Info Date of Service: 03/01/19 - Delivery Note Labor: Spontaneous Delivery Outcome: Livebirth Delivery Method: Spontaneous Vaginal Delivery-Single Delivery Mode: Spontaneous Presentation: Left Occiput Anterior (RANDALL) Nuchal Cord: None Anesthesia Type: Epidural Amniotic Fluid Description: Clear Episiotomy Type: None Laceration: None Placenta: Intact, Spontaneous Cord: 3 Vessels Estimated Blood Loss: 200 Resuscitation Needed: Yes [place]: Bulb Syringe, Stimulated, Warmed, [place] Used, Warmer Used Delivery Comments (Free Text/Narrative):: Patient found to be complete and began pushing. With maternal pushing effort head delivered from RANDALL presentation. No nuchal cord present. With gentle downward traction shoulders and body delivered. placed on maternal abdomen. Cord clamped and cut. Cord blood obtained. Placenta allowed time to separate and expelled intact. Inspection of the perineum showed no lacerations. - General Info Date of Service: 03/01/19 - Patient Data Vitals - Most Recent: Last Vital Signs Temp 36.7 C 03/01/19 13:56 Pulse 82 03/01/19 13:56 Resp 18 03/01/19 13:56 BP 128/77 03/01/19 13:56 Pulse Ox 97 03/01/19 13:56 Weight - Most Recent: 115.666 kg I&O - Last 24 Hours: Intake & Output 03/01/19 03/01/19 03/01/19 06:59 14:59 22:59 Intake Total 1000 Balance 1000 Lab Results Last 24 Hours: Laboratory Results - last 24 hr 03/01/19 03/01/19 Range/Units 14:50 14:50 WBC 14.30 H (3.98-10.04) K/mm3 RBC 4.21 (3.98-5.22) M/mm3 Hgb 12.1 (11.2-15.7) gm/dl Hct 36.3 (34.1-44.9) % MCV 86.2 (79.4-94.8) fl MCH 28.7 (25.6-32.2) pg MCHC 33.3 (32.2-35.5) g/dl RDW Std Deviation 40.8 (36.4-46.3) fL Plt Count 256 (182-369) K/mm3 MPV 11.3 (9.4-12.3) fl Blood Type O POSITIVE Gel Antibody Screen Negative Med Orders - Current: Current Medications Diphenhydramine HCl (Benadryl) 25 mg IVPUSH Q6H PRN PRN Reason: pruritis Ephedrine Sulfate (Ephedrine Sulfate) 5 mg IVPUSH ASDIRECTED PRN PRN Reason: Hypotension Fentanyl (Sublimaze) 100 mcg EPIDUR Q3H PRN PRN Reason: Pain Last Admin: 03/01/19 16:31 Dose: 100 mcg Fentanyl/Bupivacaine HCl (Fentanyl/Bupivacaine/Ns 2 Mcg-0.125% 250 Ml) 2 mcg EPIDUR CONTINUOUS PRN PRN Reason: Pain Last Admin: 03/01/19 16:31 Dose: 2 mcg Lactated Ringer's (Ringers, Lactated) 1,000 mls @ 100 mls/hr IV ASDIRECTED TAL Last Admin: 03/01/19 16:02 Dose: 100 mls/hr Oxytocin/Lactated Ringer's (Pitocin In Lr 10 Units/1,000 Ml) 10 unit in 1,000 mls @ 500 mls/hr IV .CONTINUOUS TAL Nalbuphine HCl (Nubain) 10 mg IVPUSH Q2H PRN PRN Reason: Pain Ondansetron HCl (Zofran) 4 mg IVPUSH Q4H PRN PRN Reason: Nausea/Vomiting Sodium Chloride (Saline Flush) 10 ml FLUSH ASDIRECTED PRN PRN Reason: Keep Vein Open - Problem List & Annotations (1) 40 weeks gestation of SNOMED Code(s): 21580776 Code(s): Z3A.40 - 40 WEEKS GESTATION OF Status: Acute Current Visit: Yes (2) Vaginal delivery SNOMED Code(s): 670712777 Code(s): O80 - ENCOUNTER FOR FULL-TERM UNCOMPLICATED DELIVERY Status: Acute Current Visit: Yes - Problem List Review Problem List Initiated/Reviewed/Updated: Yes - My Orders Last 24 Hours: My Active Orders 03/01/19 13:52 Patient Status [ADT] Routine Non Stress Test [RC] PER UNIT ROUTINE Vital Signs [RC] PER UNIT ROUTINE Resuscitation Status Routine 03/01/19 14:37 Patient Status [ADT] Routine Activity as Tolerated [RC] PFP Communication Order [RC] ASDIRECTED Notify Provider [RC] PFP Notify Provider [RC] PRN Vital Signs [RC] PER UNIT ROUTINE Nalbuphine [Nubain] 10 mg IVPUSH Q2H PRN Ondansetron [Zofran] 4 mg IVPUSH Q4H PRN Sodium Chloride 0.9% [Saline Flush] 10 ml FLUSH ASDIRECTED PRN Electronic Heart Tones Ext w TOCO [WOMSER] Routine Electronic Heart Tones Internal [WOMSER] Per Unit Routine Peripheral IV Insertion Adult [OM.PC] Routine 03/01/19 14:38 Heart Tones [RC] ASDIRECTED Peripheral IV Care [RC] . DIRECTED 03/01/19 14:45 Lactated Ringers [Ringers, Lactated] 1,000 ml IV ASDIRECTED Oxytocin/Lactated Ringers [Pitocin in LR 10 Units/1,000 ML] 10 unit in 1,000 ml IV .CONTINUOUS 03/01/19 14:50 RAPID PLASMA REAGIN,RPR [CHEM] Routine 03/01/19 15:18 PATIENT RETYPE [BBK] Routine 03/01/19 15:46 DRUG SCREEN, URINE [URCHEM] Routine 03/01/19 17:35 Patient Status Manage Transfer [TRANSFER] Routine 03/01/19 Lunch Regular Diet [DIET] - Assessment Assessment:: 23 y/o G3 now P2012 PPD#0 from at 40 0/7 wks - Plan Plan:: * Routine cares * Encourage breast feeding * Discharge home in 1-2 days
[2019-03-01] MEDS ORDERED: Lanolin 100% Cream 7 GM Tube TOP PRN (17:46)
[2019-03-01] MEDS ORDERED: Witch Hazel Medicated Pads 40/Jar TOP PRN (17:46)
[2019-03-01] MEDS ORDERED: Benzocaine/Menthol 20%-0.5% Spray 56 GM Canister TOP PRN (17:46)
[2019-03-01] MEDS ORDERED: Ibuprofen 600 MG Tab PO PRN (17:46)
[2019-03-01] MEDS ORDERED: Docusate Sodium 100 MG Cap PO PRN (17:46)
--- NOTE | 2019-03-02 06:58 | PCM.DCSUM1 ---
Discharge Summary - Hospital Course Free Text/Narrative:: Vero is a 23-year-old 3 now para 2013 white female admitted at 40-0/7 weeks gestational age on 03/01/2019 in active labor. Progressed to complete cervical dilation. Live spontaneous vaginal delivery in the left occiput anterior position. She had epidural for pain control. Blood loss was 200 mL. Baby is doing well. Mother is doing well. Patient is desiring discharge home. Vital signs are stable. Patient is afebrile. Diagnosis: Stroke: No - Discharge Data Discharge Date: 03/02/19 Discharge Disposition: Home, Self-Care 01 Condition: Good - Referral to Home Health Primary Care Physician: Lanie Alexander MD - Patient Instructions Diet: Regular Diet as Tolerated Activity: As Tolerated ([place] or tampons until bleeding resolves.) Showering/Bathing: May Shower (May take a bath) Notify Provider of: Fever, Increased Pain, Swelling and Redness, Nausea and/or Vomiting - Discharge Plan Home Medications: Home Meds Albuterol Sulfate [Albuterol Sulfate Hfa] 8.5 gm IH Q4HR PRN #1 [email or web address] 09/03 [Rx] Acetaminophen [Tylenol] 650 mg PO Q4H PRN tablet 03/02/19 [Rx] Ibuprofen [Motrin] 600 mg PO Q6H PRN tablet 03/02/19 [Rx] - Discharge Summary/Plan Comment DC Time >30 min.: No Discharge Summary/Plan Comment: Discharge instructions: 1. Discharge home 2. Diet, activity and follow-up discussed with patient. Recommend nursing diet with increased calories and calcium. 3. Precautions given concern increased pain, bleeding, temperature, signs/ symptoms of DVT/PE. 4. Medications per home medication was printed, discussed with and given to the patient. 5. Return to clinic-Dr. Alexander at [facility] in 6 weeks. Diagnosis: Term -delivered Condition: Good - Patient Data Vitals - Most Recent: Last Vital Signs Temp 36.9 C 03/02/19 03:00 Pulse 92 03/02/19 03:00 Resp 16 03/02/19 03:00 BP 108/55 L 03/02/19 03:00 Pulse Ox 97 03/02/19 03:00 Weight - Most Recent: 115.666 kg I&O - Last 24 hours: Intake & Output 03/01/19 03/01/19 03/02/19 14:59 22:59 06:59 Intake Total 1000 1800 Balance 1000 1800 Lab Results - Last 24 hrs: Laboratory Results - last 24 hr 03/01/19 03/01/19 03/01/19 Range/Units 14:50 14:50 14:50 WBC 14.30 H (3.98-10.04) K/mm3 RBC 4.21 (3.98-5.22) M/mm3 Hgb 12.1 (11.2-15.7) gm/dl Hct 36.3 (34.1-44.9) % MCV 86.2 (79.4-94.8) fl MCH 28.7 (25.6-32.2) pg MCHC 33.3 (32.2-35.5) g/dl RDW Std Deviation 40.8 (36.4-46.3) fL Plt Count 256 (182-369) K/mm3 MPV 11.3 (9.4-12.3) fl RPR Non-reactive (NONREACTIVE) Blood Type O POSITIVE Gel Antibody Screen Negative Med Orders - Current: Current Medications Acetaminophen (Tylenol) 650 mg PO Q4H PRN PRN Reason: mild pain or fever Benzocaine/Menthol (Dermoplast Pain Relief [place]) 0 gm TOP ASDIRECTED PRN PRN Reason: Perineal Comfort Measure Docusate Sodium (Colace) 100 mg PO BID PRN PRN Reason: Constipation Emollient Ointment (Lansinoh Hpa) 0 gm TOP ASDIRECTED PRN PRN Reason: Sore Nipples Ibuprofen (Motrin) 600 mg PO Q6H PRN PRN Reason: Mild pain or fever Witch Vera (Tucks) 1 pad TOP ASDIRECTED PRN PRN Reason: Perineal Comfort Measure Discontinued Medications Diphenhydramine HCl (Benadryl) 25 mg IVPUSH Q6H PRN PRN Reason: pruritis Ephedrine Sulfate (Ephedrine Sulfate) 5 mg IVPUSH ASDIRECTED PRN PRN Reason: Hypotension Fentanyl (Sublimaze) 100 mcg EPIDUR Q3H PRN PRN Reason: Pain Last Admin: 03/01/19 16:31 Dose: 100 mcg Fentanyl/Bupivacaine HCl (Fentanyl/Bupivacaine/Ns 2 Mcg-0.125% 250 Ml) 2 mcg EPIDUR CONTINUOUS PRN PRN Reason: Pain Last Admin: 03/01/19 16:31 Dose: 2 mcg Lactated Ringer's (Ringers, Lactated) 1,000 mls @ 100 mls/hr IV ASDIRECTED TAL Last Admin: 03/01/19 16:02 Dose: 100 mls/hr Oxytocin/Lactated Ringer's (Pitocin In Lr 10 Units/1,000 Ml) 10 unit in 1,000 mls @ 500 mls/hr IV .CONTINUOUS TAL Nalbuphine HCl (Nubain) 10 mg IVPUSH Q2H PRN PRN Reason: Pain Ondansetron HCl (Zofran) 4 mg IVPUSH Q4H PRN PRN Reason: Nausea/Vomiting Sodium Chloride (Saline Flush) 10 ml FLUSH ASDIRECTED PRN PRN Reason: Keep Vein Open
[2019-03-02] MEDS: Acetaminophen 325 MG Tab PO PRN ×2 (10:55→16:49)
[2019-03-02 16:20] VITALS: BP 123/75; PULSE 85
--- NOTE | 2019-03-02 17:46 | PCM48HPAN ---
Post Anesthesia Note - EVALUATION WITHIN 48HRS OF ANESTHETIC Vital Signs in Normal Range: Yes Patient Participated in Evaluation: Yes Respiratory Function Stable: Yes Airway Patent: Yes Cardiovascular Function Stable: Yes Hydration Status Stable: Yes Pain Control Satisfactory: Yes Nausea and Vomiting Control Satisfactory: Yes Mental Status Recovered: Yes Vital Signs: Last Vital Signs Temp 36.3 C 03/02/19 15:00 Pulse 85 03/02/19 15:00 Resp 16 03/02/19 15:00 BP 123/75 03/02/19 15:00 Pulse Ox 98 03/02/19 15:00
== END 2019-03-02 18:20 | disposition home or self-care (01) | DRG 807 ==
LOC: JD.OBCHECK 13:39 → JD.OB 13:45 → JD.OBCHECK 14:36 → JD.OB 14:45 → OBSVTOIN 17:08 → JD.MS 17:09
PROVIDERS: ADMIT Obstetrics & Gynecology; ATTEND Obstetrics & Gynecology
PROC: 10E0XZZ Delivery of Products of Conception, External Approach (ICD-10-PCS; principal; 2019-03-01)
DX: O48.0 Post-term pregnancy (principal); J45.909 Unspecified asthma, uncomplicated; O99.52 Diseases of the respiratory system complicating childbirth; Z87.891 Personal history of nicotine dependence; Z37.0 Single live birth; Z3A.40 40 weeks gestation of pregnancy
CPT/HCPCS: 36415; 59025; 59409; 85027; 86592; 86850; 86900; 86901; A9270-GY; J3010; J3490; J7120

== ENCOUNTER 2019-05-27 21:31 | Inpatient (IN) | payer MEDICAID ==
--- NOTE | 2019-05-27 22:12 | EDM.PDOC ---
<Herberth Mckeon - Last Filed: 05/28/19 07:30> ED HPI GENERAL MEDICAL PROBLEM - General Chief Complaint: Respiratory Problem Stated Complaint: SOB Time Seen by Provider: 05/27/19 22:12 - History of Present Illness INITIAL COMMENTS - FREE TEXT/NARRATIVE: 24-year-old female presents emergency room with shortness of breath. Patient has a long history of asthma. She was doing pretty well with this however she is 2 months and at the beginning of this seem to trigger her asthma again. Over the last couple days she become tighter and more shortness of breath. She tried a albuterol a nebulizer one time yesterday and this did not seem to help so she did not pursue this anymore, but she's been using her MDIs. She denies fevers or chills. She denies any possibility of she's had an IUD in place and she is 2 months . Patient does have some substernal chest pain seems to be aggravated by deep breathing but seems to be always present. Chest Pain Score (Numeric/FACES): 8 - Related Data Allergies Allergy/AdvReac Type Severity Reaction Status Date / Time No Known Allergies Allergy Verified 02/17/16 18:00 Home Meds: Home Meds Albuterol Sulfate [Albuterol Sulfate Hfa] 8.5 gm IH Q4HR PRN #1 hfa.aer.ad 09/03 [Rx] Acetaminophen [Tylenol] 650 mg PO Q4H PRN tablet 03/02/19 [Rx] Ibuprofen [Motrin] 600 mg PO Q6H PRN tablet 03/02/19 [Rx] Albuterol [Proventil Neb Soln] 1 applic INH ASDIRECTED 05/27/19 [History] Budesonide/Formoterol [Symbicort 160-4.5 MCG] 1 puff INH ASDIRECTED 05/27/19 [ History] Past Medical History - Past Health History Medical/Surgical History: Denies Medical/Surgical History Respiratory History: Reports: Asthma Gastrointestinal History: Reports: GERD [employer]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2013 Psychiatric History: Reports: None Oncologic (Cancer) History: Reports: None - Past Surgical History Other Surgical History Comment: No past surgical history - History Comment History Comment: vits Social & Family History - Family History Family Medical History: Noncontributory - Caffeine Use Caffeine Use: Reports: Tea ED ROS GENERAL - Review of Systems Review Of Systems: See Below Constitutional: Reports: No Symptoms HEENT: Reports: No Symptoms Respiratory: Reports: Shortness of Breath, Cough Cardiovascular: Reports: No Symptoms GI/Abdominal: Reports: No Symptoms : Reports: No Symptoms Skin: Reports: No Symptoms Neurological: Reports: No Symptoms Psychiatric: Reports: No Symptoms ED EXAM, GENERAL - Physical Exam Exam: See Below Exam Limited By: No Limitations General Appearance: Alert, No Apparent Distress Eye Exam: Left Eye: Normal Inspection Ears: Normal External Exam, Normal Canal, Hearing Grossly Normal, Normal TMs Nose: Normal Inspection, Normal Mucosa, No Blood Throat/Mouth: Normal Inspection, Normal Lips, Normal Teeth, Normal Gums, Normal Oropharynx, Normal Voice, No Airway Compromise Head: Atraumatic, Normocephalic Respiratory/Chest: No Respiratory Distress, Decreased Breath Sounds, Wheezing ( Shy expiratory wheezes noted no wheezes crackles or rhonchi), Other (O2 saturation 88% on room air) Cardiovascular: Regular Rate, Rhythm, No Edema, No Murmur GI/Abdominal: Normal Bowel Sounds, Soft, Non-Tender, Other (Significant obesity) Extremities: Normal Inspection, No Pedal Edema EKG INTERPRETATION Rhythm: Other (Sinus tach) Course - Vital Signs Last Recorded V/S: Last Vital Signs Temp 97.6 F 05/27/19 22:12 Pulse 86 05/28/19 06:49 Resp 32 H 05/27/19 22:12 BP 128/70 05/27/19 22:14 Pulse Ox 92 L 05/28/19 09:29 - Orders/Labs/Meds Orders: Active Orders 24 hr Category Date Time Status Admission Status [Patient Status] [ADT] Routine ADT 05/28/19 12:59 Active BIPAP Adult [RT BiPAP/CPAP] [RC] ASDIRECTED Care 05/28/19 09:04 Active Chest Physiotherapy [RT Chest Physiotherapy] [RC] Care 05/28/19 09:55 Active ASDIRECTED RT Aerosol Therapy [RC] ASDIRECTED Care 05/28/19 07:46 Active RT Peak Flow Measurement [RC] ASDIRECTED Care 05/28/19 08:46 Active CULTURE BLOOD [BC] Stat Lab 05/28/19 02:55 Received CULTURE BLOOD [BC] Stat Lab 05/28/19 03:05 Received INFLUENZA A+B AG SCREEN [RM] Stat Lab 05/28/19 09:08 Ordered RESPIRATORY PANEL PCR [MREF] Stat Lab 05/28/19 09:08 Ordered STREP PNEUMONIAE ANTIGEN [MREF] Stat Lab 05/28/19 09:08 Ordered Albuterol/Ipratropium [DuoNeb 3.0-0.5 MG/3 ML] Med 05/28/19 10:00 Active 3 ml NEB Q4HRRT methylPREDNISolone Sod Succ [Solu-MEDROL] Med 05/28/19 09:00 Active 125 mg IVPUSH DAILY Blood Culture x2 Reflex Set [OM.PC] Stat Oth 05/28/19 02:36 Ordered Medication Orders Albuterol/Ipratropium (Duoneb 3.0-0.5 Mg/3 Ml) 3 ml NEB Q4HRRT [facility] Last Admin: 05/28/19 13:00 Dose: 3 ml Admin: 05/28/19 09:28 Dose: 3 ml Methylprednisolone Sodium Succinate (Solu-Medrol) 125 mg IVPUSH DAILY [facility] Last Admin: 05/28/19 09:15 Dose: 125 mg Labs: Laboratory Tests 05/27/19 05/27/19 05/27/19 Range/Units 22:55 22:55 22:55 WBC 9.35 (3.98-10.04) K/mm3 RBC 4.20 (3.98-5.22) M/mm3 Hgb 11.9 (11.2-15.7) gm/dl Hct 36.4 (34.1-44.9) % MCV 86.7 (79.4-94.8) fl MCH 28.3 (25.6-32.2) pg MCHC 32.7 (32.2-35.5) g/dl RDW Std Deviation 40.8 (36.4-46.3) fL Plt Count 249 (182-369) K/mm3 MPV 10.5 (9.4-12.3) fl Neutrophils % (Manual) 72 H (40-60) % Band Neutrophils % 0 (0-10) % Lymphocytes % (Manual) 24 (20-40) % Atypical Lymphs % 0 % Monocytes % (Manual) 3 (2-10) % Eosinophils % (Manual) 1 (0.7-5.8) % Basophils % (Manual) 0 L (0.1-1.2) Platelet Estimate Adequate RBC Morph Comment Normal D-Dimer, Quantitative 0.69 H (0.19-0.50) mg/L Puncture Site ABG pH (7.35-7.45) ABG pCO2 (35.0-45.0) mmHg ABG pO2 (80.0-100.0) mmHg ABG HCO3 (22.0-26.0) meq/L ABG O2 Saturation (96.0-97.0) % ABG Base Excess (-2-2.0) Osmin Test A-a Gradient mmHg O2 Delivery Device Oxygen Flow Rate FiO2 (21.00-100.00) % Sodium 142 (136-145) mEq/L Potassium 3.3 L (3.5-5.1) mEq/L Chloride 106 (98-107) mEq/L Carbon Dioxide 24 (21-32) mEq/L Anion Gap 15.3 H (5-15) BUN 10 (7-18) mg/dL Creatinine 0.9 (0.55-1.02) mg/dL Est Cr Clr Drug Dosing 68.64 mL/min Estimated GFR (MDRD) > 60 (>60) mL/min BUN/Creatinine Ratio 11.1 L (14-18) Glucose 116 H (74-106) mg/dL Lactic Acid (0.4-2.0) mmol/L Calcium 8.8 (8.5-10.1) mg/dL Total Bilirubin 0.3 (0.2-1.0) mg/dL AST 10 L (15-37) U/L ALT 19 (14-59) U/L Alkaline Phosphatase 76 (46-116) U/L Troponin I (0.00-0.056) ng/mL Total Protein 8.4 H (6.4-8.2) g/dl Albumin 3.5 (3.4-5.0) g/dl Globulin 4.9 gm/dL Albumin/Globulin Ratio 0.7 L (1-2) Mycoplasma pneumon IgM (NEGATIVE) 05/27/19 05/27/19 05/28/19 Range/Units 22:55 22:55 02:55 WBC (3.98-10.04) K/mm3 RBC (3.98-5.22) M/mm3 Hgb (11.2-15.7) gm/dl Hct (34.1-44.9) % MCV (79.4-94.8) fl MCH (25.6-32.2) pg MCHC (32.2-35.5) g/dl RDW Std Deviation (36.4-46.3) fL Plt Count (182-369) K/mm3 MPV (9.4-12.3) fl Neutrophils % (Manual) (40-60) % Band Neutrophils % (0-10) % Lymphocytes % (Manual) (20-40) % Atypical Lymphs % % Monocytes % (Manual) (2-10) % Eosinophils % (Manual) (0.7-5.8) % Basophils % (Manual) (0.1-1.2) Platelet Estimate RBC Morph Comment D-Dimer, Quantitative (0.19-0.50) mg/L Puncture Site ABG pH (7.35-7.45) ABG pCO2 (35.0-45.0) mmHg ABG pO2 (80.0-100.0) mmHg ABG HCO3 (22.0-26.0) meq/L ABG O2 Saturation (96.0-97.0) % ABG Base Excess (-2-2.0) Osmin Test A-a Gradient mmHg O2 Delivery Device Oxygen Flow Rate FiO2 (21.00-100.00) % Sodium (136-145) mEq/L Potassium (3.5-5.1) mEq/L Chloride (98-107) mEq/L Carbon Dioxide (21-32) mEq/L Anion Gap (5-15) BUN (7-18) mg/dL Creatinine (0.55-1.02) mg/dL Est Cr Clr Drug Dosing mL/min Estimated GFR (MDRD) (>60) mL/min BUN/Creatinine Ratio (14-18) Glucose (74-106) mg/dL Lactic Acid 0.7 (0.4-2.0) mmol/L Calcium (8.5-10.1) mg/dL Total Bilirubin (0.2-1.0) mg/dL AST (15-37) U/L ALT (14-59) U/L Alkaline Phosphatase (46-116) U/L Troponin I < 0.017 (0.00-0.056) ng/mL Total Protein (6.4-8.2) g/dl Albumin (3.4-5.0) g/dl Globulin gm/dL Albumin/Globulin Ratio (1-2) Mycoplasma pneumon IgM Positive H (NEGATIVE) 05/28/19 Range/Units 08:39 WBC (3.98-10.04) K/mm3 RBC (3.98-5.22) M/mm3 Hgb (11.2-15.7) gm/dl Hct (34.1-44.9) % MCV (79.4-94.8) fl MCH (25.6-32.2) pg MCHC (32.2-35.5) g/dl RDW Std Deviation (36.4-46.3) fL Plt Count (182-369) K/mm3 MPV (9.4-12.3) fl Neutrophils % (Manual) (40-60) % Band Neutrophils % (0-10) % Lymphocytes % (Manual) (20-40) % Atypical Lymphs % % Monocytes % (Manual) (2-10) % Eosinophils % (Manual) (0.7-5.8) % Basophils % (Manual) (0.1-1.2) Platelet Estimate RBC Morph Comment D-Dimer, Quantitative (0.19-0.50) mg/L Puncture Site Lt radial ABG pH 7.38 (7.35-7.45) ABG pCO2 34.2 L (35.0-45.0) mmHg ABG pO2 66.0 L (80.0-100.0) mmHg ABG HCO3 19.7 L (22.0-26.0) meq/L ABG O2 Saturation 91.9 L (96.0-97.0) % ABG Base Excess -4.2 L (-2-2.0) Osmin Test Positive A-a Gradient 120 mmHg O2 Delivery Device Nasal cannula Oxygen Flow Rate 3.0 FiO2 32.00 (21.00-100.00) % Sodium (136-145) mEq/L Potassium (3.5-5.1) mEq/L Chloride (98-107) mEq/L Carbon Dioxide (21-32) mEq/L Anion Gap (5-15) BUN (7-18) mg/dL Creatinine (0.55-1.02) mg/dL Est Cr Clr Drug Dosing mL/min Estimated GFR (MDRD) (>60) mL/min BUN/Creatinine Ratio (14-18) Glucose (74-106) mg/dL Lactic Acid (0.4-2.0) mmol/L Calcium (8.5-10.1) mg/dL Total Bilirubin (0.2-1.0) mg/dL AST (15-37) U/L ALT (14-59) U/L Alkaline Phosphatase (46-116) U/L Troponin I (0.00-0.056) ng/mL Total Protein (6.4-8.2) g/dl Albumin (3.4-5.0) g/dl Globulin gm/dL Albumin/Globulin Ratio (1-2) Mycoplasma pneumon IgM (NEGATIVE) Meds: Medications Generic Name Dose Route Start Last Admin Trade Name Freq PRN Reason Stop Dose Admin Albuterol/Ipratropium 3 ml 05/28/19 10:00 05/28/19 13:00 Duoneb 3.0-0.5 Mg/3 Ml NEB 3 ml Q4HRRT TAL Administration Methylprednisolone Sodium Succinate 125 mg 05/28/19 09:00 05/28/19 09:15 Solu-Medrol IVPUSH 125 mg DAILY TAL Administration Discontinued Medications Generic Name Dose Route Start Last Admin Trade Name Freq PRN Reason Stop Dose Admin Albuterol/Ipratropium 3 ml 05/27/19 22:25 05/27/19 22:41 Duoneb 3.0-0.5 Mg/3 Ml NEB 05/27/19 22:26 3 ml ONETIME ONE Administration Albuterol/Ipratropium 3 ml 05/27/19 23:19 05/27/19 23:30 Duoneb 3.0-0.5 Mg/3 Ml NEB 05/27/19 23:20 3 ml ONETIME ONE Administration Albuterol/Ipratropium 3 ml 05/28/19 07:00 05/28/19 06:58 Duoneb 3.0-0.5 Mg/3 Ml NEB 3 ml Q6HRRT TAL Administration Magnesium Sulfate 2 gm/ Premix 50 mls @ 25 mls/hr 05/27/19 22:26 05/27/19 22: 54 IV 05/28/19 00:25 25 mls/hr ONETIME ONE Administration Lactated Ringer's 500 mls @ 999 mls/hr 05/28/19 00:31 05/28/19 00:40 Ringers, Lactated IV 05/28/19 01:01 999 mls/hr .BOLUS ONE Administration Azithromycin 500 mg/ Sodium 250 mls @ 250 mls/hr 05/28/19 02:41 05/28/19 03: 01 Chloride IV 05/28/19 03:40 250 mls/hr ONETIME ONE Administration Methylprednisolone Sodium Succinate 125 mg 05/27/19 22:26 05/27/19 22:53 Solu-Medrol IVPUSH 05/27/19 22:27 125 mg ONETIME ONE Administration Potassium Chloride 40 meq 05/28/19 00:08 05/28/19 00:41 Klor-Con M20 PO 05/28/19 00:09 40 meq ONETIME ONE Administration Prednisone 40 mg 05/28/19 07:00 Prednisone PO WITHBREAKFAST [facility] - Re-Assessments/Exams Free Text/Narrative Re-Assessment/Exam: 05/28/19 00:35 Patient received magnesium Solu-Medrol to nebulizer treatments and is not getting any better he had chest x-ray shows a small area of consolidation in the lower most retrocardiac area. I checked d-dimer and this was elevated. We' ll check troponin and EKG and give 500 mL LR bolus followed by a chest CTA. 05/28/19 05:10 [address] hours [address] it was negative for PE but did show diffuse lateral tree- in-bud opacities, or bronchiolitis. Patient is doing okay on 3 L of oxygen. It was strongly recommended the patient be admitted to the hospital. However, our hospital is at capacity. Which means the patient would need to go to [place]. Patient declined this option. After looking at all options was thought best to keep the patient emergency department until something opened up in our hospital. As going to [place] would put a tremendous strain on the patient's family and social situation. Patient had blood cultures obtained was started on Zithromax and has remained stable here in the emergency room on supplemental O2 at 3 L per nasal cannula. The patient did not seem to get much benefit from DuoNeb treatments. However these will be continued every 6 hours for now the patient will stay on steroids anticipate prednisone 40 mg twice a day. Departure - Departure Disposition: Refer to Observation Clinical Impression: Acute asthma - Discharge Information Referrals: Lanie Alexander MD [Primary Care Provider] - Forms: ED Department Discharge Sepsis Event Note - Focused Exam Vital Signs: Vital Signs Pulse Pulse Ox Pulse Ox 05/28/19 09:29 92 L 05/28/19 06:58 92 L 05/28/19 06:49 86 93 L 05/28/19 05:40 105 H 92 L 05/28/19 04:21 104 H 93 L 05/28/19 01:59 100 83 L Date Exam was Performed: 05/28/19 Time Exam was Performed: 07:30 - My Orders Last 24 Hours: My Active Orders 05/28/19 12:59 Admission Status [Patient Status] [ADT] Routine - Assessment/Plan Last 24 Hours: My Active Orders 05/28/19 12:59 Admission Status [Patient Status] [ADT] Routine <Edith Bonilla - Last Filed: 05/28/19 13:02> Course - Re-Assessments/Exams Free Text/Narrative Re-Assessment/Exam: 05/28/19 13:01 Dr. Acuña was in to evaluate the patient, and she will be admitted for observation at this time. Departure - Departure Time of Disposition: 13:01 Condition: Fair - Discharge Information *PRESCRIPTION DRUG MONITORING PROGRAM REVIEWED*: No *COPY OF PRESCRIPTION DRUG MONITORING REPORT IN PATIENT DUONG: No Sepsis Event Note - Focused Exam Date Exam was Performed: 05/28/19 Time Exam was Performed: 13:01
[2019-05-27] MEDS ORDERED: Albuterol/Ipratropium 3.0-0.5 MG/3 ML Neb Soln NEB ONE ×2 (22:25→23:19)
[2019-05-27] MEDS ORDERED: methylPREDNISolone Sodium Succinate 125 MG/2 ML SDV IVPUSH ONE (22:26)
[2019-05-27] MEDS ORDERED: Magnesium Sulfate/Water 2 GM in Premix Bag 1 BAG IV ONE (22:26)
[2019-05-28] MEDS ORDERED: Potassium Chloride 20 MEQ Tab.ER PO ONE (00:08)
[2019-05-28] MEDS ORDERED: Lactated Ringers 500 ML IV ONE (00:31)
[2019-05-28] MEDS ORDERED: Azithromycin 500 MG in Sodium Chloride 0.9% 250 ML IV ONE (02:41)
[2019-05-28] MEDS ORDERED: Albuterol/Ipratropium 3.0-0.5 MG/3 ML Neb Soln NEB SCH (07:00)
[2019-05-28] MEDS ORDERED: predniSONE 20 MG Tab PO SCH (07:00)
--- NOTE | 2019-05-28 07:25 | CR ---
Chest: Two views of the chest were obtained. Comparison: No prior chest imaging. Heart size and mediastinum are normal. Lungs are clear. Bony structures are unremarkable. Impression: 1. Nothing acute is seen on two-view chest x-ray. Diagnostic code #1 This report was dictated in [place] Standard Time
--- NOTE | 2019-05-28 07:31 | CT ---
CT chest Technique: Multiple axial sections were obtained from above the lung apices inferiorly through the pubic symphysis. Intravenous contrast was utilized. Study performed as a pulmonary angiogram protocol. Findings: Pulmonary arteries are not optimally opacified. No filling defects are seen within the main or segmental branches. Smaller subsegmental pulmonary emboli could be missed. Mediastinum and hilar regions show several lymph nodes which are believed to be within normal limits. Residual thymic tissue is seen within the superior mediastinum. No axillary adenopathy is seen. No pericardial thickening is seen. Diffuse parenchymal change is noted within both lungs involving both upper and lower lungs. Impression: 1. Diffuse increased density within both sides of the chest. Differential includes diffuse bronchopneumonia. Please correlate if this matches patient's clinical symptoms. 2. Suboptimal opacification of the pulmonary arteries. No larger pulmonary embolism within the main or segmental branches are seen. Smaller subsegmental pulmonary emboli could be missed. 3. No additional abnormality is appreciated. Diagnostic code #3 This report was dictated in [place] Standard Time I agree with preliminary report from [facility], finalized on 05/28/19, 2:47 AM Central Time
[2019-05-28] MEDS: methylPREDNISolone Sodium Succinate 125 MG/2 ML SDV IVPUSH SCH (09:15)
[2019-05-28] MEDS: Albuterol/Ipratropium 3.0-0.5 MG/3 ML Neb Soln NEB SCH ×4 (09:28→21:30)
[2019-05-28] MEDS ORDERED: Benzocaine/Cetylpyridinium/Menthol Lozenge MUCMEM PRN (17:09)
--- NOTE | 2019-05-28 17:48 | PCM.HP.2 ---
H&P History of Present Illness - General Date of Service: 05/28/19 Admit Problem/Dx: Admission Diagnosis/Problem Admission Diagnosis/Problem Asthma with acute exacerbation - History of Present Illness Initial Comments - Free Text/Narative: This is a 24 year old post female who comes to the ED complaining of worsening shortness of breath associated with pleuritic chest pain in the past day. As per patient her and toddler son have had a flu like illness and they have all been sick for about a week. had nasal congestion and significantly productive cough, her son has been having decreasing appetite and she has had a flue like illness with severely worsening shortness of breath that culminated last night when she decided to come in because it was becoming increasing harder to take deep breaths. Chest Pain Score (Numeric/FACES): 8 - Related Data Allergies/Adverse Reactions: Allergies Allergy/AdvReac Type Severity Reaction Status Date / Time No Known Allergies Allergy Verified 02/17/16 18:00 Home Medications: Home Meds Albuterol Sulfate [Albuterol Sulfate Hfa] 8.5 gm IH Q4HR PRN #1 [email or web address] 09/03 [Rx] Acetaminophen [Tylenol] 650 mg PO Q4H PRN tablet 03/02/19 [Rx] Ibuprofen [Motrin] 600 mg PO Q6H PRN tablet 03/02/19 [Rx] Albuterol [Proventil Neb Soln] 1 applic INH ASDIRECTED 05/27/19 [History] Budesonide/Formoterol [Symbicort 160-4.5 MCG] 1 puff INH ASDIRECTED 05/27/19 [ History] Past Medical History - Past Health History Medical/Surgical History: Denies Medical/Surgical History Respiratory History: Reports: Asthma Gastrointestinal History: Reports: [employer] History: Reports: Other OB/BYN History: 2013 Psychiatric History: Reports: None Oncologic (Cancer) History: Reports: None - Infectious Disease History Infectious Disease History: Reports: Chicken Pox - Past Surgical History Other Surgical History Comment: No past surgical history - History Comment History Comment: vits Social & Family History - Family History Family Medical History: Noncontributory - Tobacco Use Smoking Status *Q: Former Smoker Used Tobacco, but Quit: Yes Month/Year Tobacco Last Used: 10 months - Caffeine Use Caffeine Use: Reports: Coffee Other Caffeine Use: 1/day, occasional tea - Recreational Drug Use Recreational Drug Use: No H&P Review of Systems - Review of Systems: Review Of Systems: See Below General: Reports: Malaise. Denies: Fever, Chills, Weakness, Fatigue, Night Sweats, Diaphoresis, Decreased Appetite, Weight Loss HEENT: Reports: Sinus Congestion, Sore Throat. Denies: Rhinitis, Post Nasal Drip, Vertigo Pulmonary: Reports: Shortness of Breath, Wheezing, Pleuritic Chest Pain, Cough. Denies: Sputum, Hemoptysis Cardiovascular: Reports: Chest Pain, Dyspnea on Exertion. Denies: Palpitations , Orthopnea, PND, Edema, Lightheadedness, Syncope, Claudication Gastrointestinal: Denies: Abdominal Pain, Anorexia, Black Stool, Bloody Stool, Constipation, Diarrhea, Decreased Appetite, Difficulty Swallowing, Distension, Nausea, Vomiting Genitourinary: Denies: Dysuria, Frequency, Burning, Pain, Urgency Musculoskeletal: Denies: Joint Pain, Joint Swelling, Muscle Pain, Muscle Stiffness Skin: Denies: Cyanosis, Jaundice, Mottled, Pallor, Diaphoresis Psychiatric: Denies: Confusion, Depression, Mood Lability, Anxiety, Agitation Neurological: Reports: Headache. Denies: Confusion, Dizziness, Numbness Hematologic/Lymphatic: Denies: Anemia, Easy Bleeding Immunologic: Denies: Anaphylaxis, Food Allergy Exam - Exam Exam: See Below - Vital Signs Vital Signs: Last Vital Signs Temp 98.6 F 05/28/19 14:08 Pulse 115 H 05/28/19 14:10 Resp 20 05/28/19 14:08 BP 129/54 L 05/28/19 14:08 Pulse Ox 92 L 05/28/19 14:10 Weight: 108.499 kg - Exam General: Alert, Oriented, Moderate Distress HEENT: Hearing Intact, Mucosa Moist & [place], Normal Nasal Septum. No: Conjunctiva Clear Neck: Supple, Trachea Midline Lungs: Decreased Breath Sounds (very poor inspiratory effort), Crackles, Wheezing Cardiovascular: Regular Rate, Regular Rhythm. No: Systolic Murmur, Diastolic Murmur, Rubs, Gallop/S3, Gallop/S4 GI/Abdominal Exam: Normal Bowel Sounds, Soft, Non-Tender, No Organomegaly Back Exam: Normal Inspection. No: CVA Tenderness (L), CVA Tenderness (R) Extremities: Normal Inspection, Normal Range of Motion, Non-Tender, No Pedal Edema, Normal Capillary Refill Skin: Warm Neuro Extensive - Mental Status: Alert, Oriented x3 Psychiatric: Agitated - Patient Data Result Diagrams: 05/27/19 22:55 05/27/19 22:55 EKG INTERPRETATION EKG Date: 05/28/19 Rhythm: NSR [place]: Normal P-Wave: Present QRS: Normal ST-T: Normal QT: Normal (Sinus tachycardia) Sepsis Event Note - Evaluation Sepsis Screening Result: No Definite Risk - Focused Exam Vital Signs: Vital Signs Temp Pulse Pulse Resp BP Pulse Ox Pulse Ox 05/28/19 14:10 115 H 92 L 05/28/19 14:08 98.6 F 122 H 20 129/54 L 92 L 05/28/19 13:01 91 L 05/28/19 09:29 92 L 05/28/19 06:58 92 L 05/28/19 06:49 86 93 L Date Exam was Performed: 05/28/19 Time Exam was Performed: 18:05 - Problem List (1) Acute hypoxemic respiratory failure SNOMED Code(s): 576655754 ICD Code: J96.01 - ACUTE RESPIRATORY FAILURE WITH HYPOXIA Status: Acute Current Visit: Yes (2) state SNOMED Code(s): 34603371 ICD Code: Z39.2 - ENCOUNTER FOR ROUTINE FOLLOW-UP Status: Acute Current Visit: Yes (3) Abnormal chest CT SNOMED Code(s): 215238670, 643990445 ICD Code: R93.89 - ABNORMAL FINDINGS ON DX IMAGING OF OTH BODY STRUCTURES Status: Acute Current Visit: Yes (4) Ex-smoker SNOMED Code(s): 8189514 ICD Code: Z87.891 - PERSONAL HISTORY OF NICOTINE DEPENDENCE Status: Acute Current Visit: Yes (5) Exacerbation of asthma SNOMED Code(s): 619609157 ICD Code: J45.901 - UNSPECIFIED ASTHMA WITH (ACUTE) EXACERBATION Status: Acute Current Visit: No Qualifiers: Asthma severity: unspecified severity Asthma persistence: unspecified Qualified Code(s): J45.901 - Unspecified asthma with (acute) exacerbation (6) Community acquired pneumonia SNOMED Code(s): 867904790 ICD Code: J18.9 - PNEUMONIA, UNSPECIFIED ORGANISM Status: Acute Current Visit: Yes Problem List Initiated/Reviewed/Updated: Yes Assessment/Plan Comment:: Acute hypoxemic respiratory failure Community acquired pneumonia Asthma exacerbation Abnormal chest CT Ex-smoker Diagnosed with asthma as a child Worsening shortness of breath with pleuritic chest pain for 1 week Peak flow 19% (predicted 471) No response to Magnesium and DuoNebs Did get flu shot today CT chest with tree in bud appearance PLAN - Scheduled DuoNebs q4h - Solumedrol daily - Step. pneumo, mycoplasma, RSV panel, influenza swab - Start Levaquin state 2 months post PLAN - Avoid medications that affect breast milk PROPHYLAXIS DVT-Lovenox GI- not indicated CODE STATUS: FULL CODE DISPOSITION: Admitted under observation for scheduled neb treatments and peak flow measurements as well as IV ATB. - Mortality Measure Prognosis:: Good
[2019-05-28] MEDS ORDERED: Codeine/guaiFENesin 100-10 MG/5 ML Syrup 5 ML Cup PO PRN (18:08)
[2019-05-28] MEDS ORDERED: Ondansetron 4 MG/2 ML SDV IV PRN (18:08)
[2019-05-28] MEDS ORDERED: Ondansetron 4 MG Tab.DIS PO PRN (18:08)
[2019-05-28] MEDS ORDERED: Acetaminophen 325 MG Tab PO PRN (18:33)
[2019-05-28] MEDS: Budesonide 0.5 MG/2 ML Neb Susp NEB SCH (21:30)
[2019-05-29] MEDS: Albuterol/Ipratropium 3.0-0.5 MG/3 ML Neb Soln NEB SCH ×6 (01:39→21:11)
[2019-05-29] MEDS: Budesonide 0.5 MG/2 ML Neb Susp NEB SCH ×2 (05:48→21:11)
[2019-05-29] MEDS ORDERED: Azithromycin 250 MG in Sodium Chloride 0.9% 250 ML IV SCH (09:00)
[2019-05-29] MEDS ORDERED: Sodium Chloride 0.9% 1,000 ML IV SCH (09:15)
--- NOTE | 2019-05-29 09:16 | PCM.PN ---
- General Info Date of Service: 05/29/19 Admission Dx/Problem (Free Text): Admission Diagnosis/Problem Admission Diagnosis/Problem Asthma with acute exacerbation Subjective Update: In to see Vero. She reports she feels about the same, although her mother in the room reports to her, she sounds much better. Patients children are in the room and we did discuss concerns over transmission of infection. Patient has been wearing a surgical mask when family is in room. Patients mother reports the entire family has been on and off sick for the past few months. We discussed CT scan results and need to follow-up with pulmonology. We also discussed need for PFT after symptoms resolve. Patient does admit that she will smoke when drinking so we discussed avoiding all smoking in the future. Plan of care was discussed and all questions were answered. Patient informed LOS likely 1-2 more days minimum. She reports she has been quite jittery since being given the solumedrol. We discussed avoiding medications that can be passed through the breast milk. Functional Status: Reports: Pain Controlled, Tolerating Diet, Ambulating ( minimal in room), Urinating. Denies: New Symptoms - Review of Systems General: Reports: Weakness, Fatigue, Malaise. Denies: Fever, Chills HEENT: Denies: Headaches, Sore Throat Pulmonary: Reports: Shortness of Breath, Pleuritic Chest Pain, Cough, Wheezing ( improved ). Denies: Sputum Cardiovascular: Reports: Dyspnea on Exertion. Denies: Chest Pain, Palpitations , Edema Gastrointestinal: Denies: Abdominal Pain, Constipation, Diarrhea, Nausea, Vomiting Genitourinary: Reports: No Symptoms. Denies: Pain Musculoskeletal: Reports: No Symptoms Skin: Reports: No Symptoms. Denies: Cyanosis Neurological: Reports: No Symptoms. Denies: Confusion, Difficulty Walking, Gait Disturbance Psychiatric: Reports: No Symptoms - Patient Data Vitals - Most Recent: Last Vital Signs Temp 97.5 F 05/29/19 08:47 Pulse 92 05/29/19 08:47 Resp 20 05/29/19 08:47 BP 123/63 05/29/19 08:47 Pulse Ox 97 05/29/19 08:47 Weight - Most Recent: 240 lb 3.2 oz I&O - Last 24 Hours: Intake & Output 05/28/19 05/29/19 05/29/19 22:59 06:59 14:59 Intake Total 410 300 Output Total 450 Balance -40 300 Lab Results Last 24 Hours: Laboratory Results - last 24 hr 05/27/19 05/29/19 05/29/19 Range/Units 22:55 05:05 05:05 WBC 10.80 H (3.98-10.04) K/mm3 RBC 3.68 L (3.98-5.22) M/mm3 Hgb 10.4 L D (11.2-15.7) gm/dl Hct 32.8 L (34.1-44.9) % MCV 89.1 (79.4-94.8) fl MCH 28.3 (25.6-32.2) pg MCHC 31.7 L (32.2-35.5) g/dl RDW Std Deviation 41.8 (36.4-46.3) fL Plt Count 283 (182-369) K/mm3 MPV 10.9 (9.4-12.3) fl Neut % (Auto) 75.9 H (34.0-71.1) % Lymph % (Auto) 16.3 L (19.3-51.7) % [place] % (Auto) 7.1 (4.7-12.5) % Eos % (Auto) 0 L (0.7-5.8) Baso % (Auto) 0.1 (0.1-1.2) % Neut # (Auto) 8.20 H (1.56-6.13) K/mm3 Lymph # (Auto) 1.76 (1.18-3.74) K/mm3 [place] # (Auto) 0.77 H (0.24-0.36) K/mm3 Eos # (Auto) 0.00 L (0.04-0.36) K/mm3 Baso # (Auto) 0.01 (0.01-0.08) K/mm3 Sodium 142 (136-145) mEq/L Potassium 4.2 (3.5-5.1) mEq/L Chloride 108 H (98-107) mEq/L Carbon Dioxide 23 (21-32) mEq/L Anion Gap 15.2 H (5-15) BUN 15 (7-18) mg/dL Creatinine 0.7 (0.55-1.02) mg/dL Est Cr Clr Drug Dosing TNP Estimated GFR (MDRD) > 60 (>60) mL/min BUN/Creatinine Ratio 21.4 H (14-18) Glucose 113 H (74-106) mg/dL Calcium 8.7 (8.5-10.1) mg/dL Phosphorus 4.9 H (2.6-4.7) mg/dL Magnesium 2.3 (1.8-2.4) mg/dl Mycoplasma pneumon IgM Positive H (NEGATIVE) Roberto Results Last 24 Hours: Microbiology 05/28/19 02:55 Aerobic Blood Culture - Preliminary Blood - Venous NO GROWTH AFTER 1 DAY Anaerobic Blood Culture - Preliminary NO GROWTH AFTER 1 DAY 05/28/19 03:05 Aerobic Blood Culture - Preliminary Blood - Venous - Lab Draw NO GROWTH AFTER 1 DAY Anaerobic Blood Culture - Preliminary NO GROWTH AFTER 1 DAY Med Orders - Current: Current Medications Acetaminophen (Tylenol) 650 mg PO Q4H PRN PRN Reason: Pain/Fever Last Admin: 05/28/19 19:05 Dose: 650 mg Albuterol/Ipratropium (Duoneb 3.0-0.5 Mg/3 Ml) 3 ml NEB Q4HRRT [facility] Last Admin: 05/29/19 05:48 Dose: 3 ml Benzocaine/Menthol (Cepacol Sore Throat) 1 lozenge MUCMEM Q2H PRN PRN Reason: Sore Throat Budesonide (Pulmicort) 0.5 mg NEB BIDRT [facility] Last Admin: 05/29/19 05:48 Dose: 0.5 mg Enoxaparin Sodium (Lovenox) 40 mg SUBCUT DAILY [facility] Guaifenesin/Codeine Phosphate (Robitussin Ac) 5 ml PO Q6H PRN PRN Reason: Cough Sodium Chloride (Normal Saline) 1,000 mls @ 100 mls/hr IV ASDIRECTED [facility] Stop: 05/30/19 19:14 Azithromycin 250 mg/ Sodium (Chloride) 250 mls @ 250 mls/hr IV Q24H [facility] Stop: 06/01/19 10:29 Methylprednisolone Sodium Succinate (Solu-Medrol) 125 mg IVPUSH DAILY [facility] Last Admin: 05/28/19 09:15 Dose: 125 mg Ondansetron HCl (Zofran Odt) 4 mg PO Q6H PRN PRN Reason: nausea, able to take PO Ondansetron HCl (Zofran) 4 mg IV Q6H PRN PRN Reason: Nausea/Vomiting Discontinued Medications Albuterol/Ipratropium (Duoneb 3.0-0.5 Mg/3 Ml) 3 ml NEB ONETIME ONE Stop: 05/27/19 22:26 Last Admin: 05/27/19 22:41 Dose: 3 ml Albuterol/Ipratropium (Duoneb 3.0-0.5 Mg/3 Ml) 3 ml NEB ONETIME ONE Stop: 05/27/19 23:20 Last Admin: 05/27/19 23:30 Dose: 3 ml Albuterol/Ipratropium (Duoneb 3.0-0.5 Mg/3 Ml) 3 ml NEB Q6HRRT [facility] Last Admin: 05/28/19 06:58 Dose: 3 ml Magnesium Sulfate 2 gm/ Premix 50 mls @ 25 mls/hr IV ONETIME ONE Stop: 05/28/19 00:25 Last Admin: 05/27/19 22:54 Dose: 25 mls/hr Lactated Ringer's (Ringers, Lactated) 500 mls @ 999 mls/hr IV .BOLUS ONE Stop: 05/28/19 01:01 Last Admin: 05/28/19 00:40 Dose: 999 mls/hr Azithromycin 500 mg/ Sodium (Chloride) 250 mls @ 250 mls/hr IV ONETIME ONE Stop: 05/28/19 03:40 Last Admin: 05/28/19 03:01 Dose: 250 mls/hr Azithromycin 250 mg/ Sodium (Chloride) 250 mls @ 250 mls/hr IV Q24H [facility] Stop: 06/01/19 09:59 Methylprednisolone Sodium Succinate (Solu-Medrol) 125 mg IVPUSH ONETIME ONE Stop: 05/27/19 22:27 Last Admin: 05/27/19 22:53 Dose: 125 mg Potassium Chloride (Klor-Con M20) 40 meq PO ONETIME ONE Stop: 05/28/19 00:09 Last Admin: 05/28/19 00:41 Dose: 40 meq Prednisone (Prednisone) 40 mg PO WITHBREAKFAST [facility] Last Admin: 05/28/19 15:52 Dose: Not Given - Exam Quality Assessment: Supplemental Oxygen (3L) General: Alert, Oriented, Cooperative, No Acute Distress HEENT: Pupils Equal, Pupils Reactive, Mucous Membr. Moist/[place] Neck: Supple, Trachea Midline Lungs: Normal Respiratory Effort, Decreased Breath Sounds, Crackles, Wheezing ( very minimal ) Cardiovascular: Regular Rate, Regular Rhythm GI/Abdominal Exam: Normal Bowel Sounds, Soft, Non-Tender, No Organomegaly, No Distention (Female) Exam: Deferred Back Exam: Normal Inspection, Full Range of Motion Extremities: Normal Inspection, Normal Range of Motion, Non-Tender, No Pedal Edema, Normal Capillary Refill Peripheral Pulses: 3+: Radial (L), Radial (R), Dorsalis Pedis (L), Dorsalis Pedis (R) Skin: Warm, Dry, Intact Neurological: No New Focal Deficit Psy/Mental Status: Alert Sepsis Event Note - Evaluation Sepsis Screening Result: No Definite Risk - Focused Exam Vital Signs: Vital Signs Temp Pulse Resp BP Pulse Ox Pulse Ox 05/29/19 08:47 97.5 F 92 20 123/63 97 05/29/19 08:30 88 L 05/29/19 08:12 98 05/29/19 05:48 94 L 05/29/19 05:27 97.7 F 82 18 113/69 94 L 05/29/19 04:00 94 L 05/29/19 01:39 98 05/29/19 00:00 94 L 05/28/19 23:39 98.1 F 97 20 120/55 L 94 L 05/28/19 21:30 96 Date Exam was Performed: 05/29/19 Time Exam was Performed: 14:02 - Problem List & Annotations (1) Abnormal chest CT SNOMED Code(s): 817662323, 536262151 Code(s): R93.89 - ABNORMAL FINDINGS ON DX IMAGING OF OTH BODY STRUCTURES Status: Acute Priority: High Current Visit: Yes (2) Acute asthma SNOMED Code(s): 354956622 Code(s): J45.909 - UNSPECIFIED ASTHMA, UNCOMPLICATED Status: Acute Priority: High Current Visit: Yes (3) Acute hypoxemic respiratory failure SNOMED Code(s): 941214379 Code(s): J96.01 - ACUTE RESPIRATORY FAILURE WITH HYPOXIA Status: Acute Priority: High Current Visit: Yes (4) Community acquired pneumonia SNOMED Code(s): 369244997 Code(s): J18.9 - PNEUMONIA, UNSPECIFIED ORGANISM Status: Acute Priority: High Current Visit: Yes Qualifiers: Laterality: unspecified laterality Qualified Code(s): J18.9 - Pneumonia, unspecified organism (5) Ex-smoker SNOMED Code(s): 1921891 Code(s): Z87.891 - PERSONAL HISTORY OF NICOTINE DEPENDENCE Status: Chronic Priority: Medium Current Visit: Yes (6) state SNOMED Code(s): 27645516 Code(s): Z39.2 - ENCOUNTER FOR ROUTINE FOLLOW-UP Status: Chronic Priority: Medium Current Visit: Yes (7) Mycoplasma pneumonia SNOMED Code(s): 27912625 Code(s): J15.7 - PNEUMONIA DUE TO MYCOPLASMA PNEUMONIAE Status: Acute Priority: High Current Visit: Yes Qualifiers: Laterality: unspecified laterality Lung location: unspecified part of lung Qualified Code(s): J15.7 - Pneumonia due to Mycoplasma pneumoniae - Problem List Review Problem List Initiated/Reviewed/Updated: Yes - My Orders Last 24 Hours: My Active Orders 05/29/19 09:15 Sodium Chloride 0.9% @ 100 MLS/HR(1000ml Bag) Sodium Chloride 0.9% [Normal Saline] 1,000 ml IV ASDIRECTED 05/29/19 09:30 Azithromycin [Zithromax] 250 mg Sodium Chloride 0.9% [Normal Saline] 250 ml IV Q24H 05/30/19 05:11 BASIC METABOLIC PANEL,BMP [CHEM] AM CBC WITH AUTO DIFF [HEME] AM MAGNESIUM [CHEM] AM PHOSPHORUS [CHEM] AM - Plan Plan:: Acute hypoxemic respiratory failure Community acquired pneumonia Mycoplasma pneumonia Asthma exacerbation Abnormal chest CT Ex-smoker Diagnosed with asthma as a child Worsening shortness of breath with pleuritic chest pain for 1 week Peak flow 19% (predicted 471) No response to Magnesium and DuoNebs Did get flu shot today CT chest with tree in bud appearance PLAN - Scheduled DuoNebs q4h - Solumedrol daily - Pulmicort BID - RT/Acapella/IS - Peak flow measurements Q4hr - Step. pneumo, RSV panel, influenza swab - Mycoplasma Positive - Azithromycin 500mg given in ED - Continue at 250mg for 4 days - IV fluids as ordered state 2 months post PLAN - Avoid medications that affect breast milk PROPHYLAXIS DVT-Lovenox due to minimal ambulation, post- state GI- not indicated CODE STATUS: FULL CODE DISPOSITION: Admitted under observation for scheduled neb treatments and peak flow measurements as well as IV ATB. 1-2 more days of care. Will need outpatient pulmonology follow-up.
[2019-05-29] MEDS: Enoxaparin 40 MG/0.4 ML Syringe SUBCUT SCH (09:32)
[2019-05-29] MEDS: methylPREDNISolone Sodium Succinate 125 MG/2 ML SDV IVPUSH SCH (09:33)
[2019-05-29] MEDS: Azithromycin 250 MG in Sodium Chloride 0.9% 250 ML IV SCH (09:33)
[2019-05-29] MEDS ORDERED: guaiFENesin 100 MG/5 ML Soln 10 ML UD Cup PO PRN (14:16)
[2019-05-29] MEDS: Lactated Ringers 1,000 ML IV SCH (16:08)
[2019-05-30] MEDS: Albuterol/Ipratropium 3.0-0.5 MG/3 ML Neb Soln NEB SCH ×6 (02:21→20:59)
[2019-05-30] MEDS: Lactated Ringers 1,000 ML IV SCH (02:38)
[2019-05-30] MEDS: Budesonide 0.5 MG/2 ML Neb Susp NEB SCH ×2 (07:02→20:43)
--- NOTE | 2019-05-30 07:11 | PCM.PN ---
- General Info Date of Service: 05/30/19 Admission Dx/Problem (Free Text): Admission Diagnosis/Problem Admission Diagnosis/Problem Asthma with acute exacerbation Subjective Update: In to see Vero. She is off of oxygen and sitting on the couch pumping. She is almost done with her IV fluids. Encouraged to ambulate. Peak flow was in the 300 's this AM with a predicted in the middle 400's. Her lung sounds have improved. She reports she still has coughing fits but overall feels better. Due to some type of error the RVP was not sent and was re-done today. Awaiting results of this. Will decrease steroid dosing and continue current treatment plan. Likely discharge tomorrow pending continued improvement. Functional Status: Reports: Pain Controlled, Tolerating Diet, Ambulating, Urinating, New Symptoms, Incentive Spirometry, Other (Acapella, peak flow meter ) - Review of Systems General: Reports: Weakness (improved ). Denies: Fever, Fatigue, Malaise, Chills HEENT: Reports: No Symptoms. Denies: Headaches, Sore Throat Pulmonary: Reports: Cough, Sputum. Denies: Shortness of Breath, Wheezing Cardiovascular: Reports: Dyspnea on Exertion. Denies: Chest Pain, Palpitations , Edema Gastrointestinal: Reports: No Symptoms. Denies: Abdominal Pain, Constipation, Diarrhea, Nausea, Vomiting Genitourinary: Reports: No Symptoms. Denies: Pain Musculoskeletal: Reports: No Symptoms Skin: Reports: No Symptoms. Denies: Cyanosis Neurological: Reports: No Symptoms. Denies: Confusion, Difficulty Walking, Gait Disturbance Psychiatric: Reports: No Symptoms - Patient Data Vitals - Most Recent: Last Vital Signs Temp 97.7 F 05/30/19 02:35 Pulse 101 H 05/30/19 02:35 Resp 16 05/30/19 02:35 BP 118/62 05/30/19 02:35 Pulse Ox 100 05/30/19 07:03 Weight - Most Recent: 240 lb 9.6 oz I&O - Last 24 Hours: Intake & Output 05/29/19 05/30/19 05/30/19 22:59 06:59 14:59 Intake Total 1295 1840 Output Total 500 Balance 1295 1340 Lab Results Last 24 Hours: Laboratory Results - last 24 hr 05/30/19 05/30/19 Range/Units 05:17 05:17 WBC 11.34 H (3.98-10.04) K/mm3 RBC 3.30 L (3.98-5.22) M/mm3 Hgb 9.6 L (11.2-15.7) gm/dl Hct 30.0 L (34.1-44.9) % MCV 90.9 (79.4-94.8) fl MCH 29.1 (25.6-32.2) pg MCHC 32.0 L (32.2-35.5) g/dl RDW Std Deviation 41.7 (36.4-46.3) fL Plt Count 243 (182-369) K/mm3 MPV 10.9 (9.4-12.3) fl Neut % (Auto) 76.0 H (34.0-71.1) % Lymph % (Auto) 16.8 L (19.3-51.7) % [place] % (Auto) 6.4 (4.7-12.5) % Eos % (Auto) 0.1 L (0.7-5.8) Baso % (Auto) 0.1 (0.1-1.2) % Neut # (Auto) 8.62 H (1.56-6.13) K/mm3 Lymph # (Auto) 1.90 (1.18-3.74) K/mm3 [place] # (Auto) 0.73 H (0.24-0.36) K/mm3 Eos # (Auto) 0.01 L (0.04-0.36) K/mm3 Baso # (Auto) 0.01 (0.01-0.08) K/mm3 Manual Slide Review Normal smear Sodium 141 (136-145) mEq/L Potassium 3.9 (3.5-5.1) mEq/L Chloride 108 H (98-107) mEq/L Carbon Dioxide 24 (21-32) mEq/L Anion Gap 12.9 (5-15) BUN 18 (7-18) mg/dL Creatinine 0.7 (0.55-1.02) mg/dL Est Cr Clr Drug Dosing TNP Estimated GFR (MDRD) > 60 (>60) mL/min BUN/Creatinine Ratio 25.7 H (14-18) Glucose 96 (74-106) mg/dL Calcium 8.6 (8.5-10.1) mg/dL Phosphorus 4.2 (2.6-4.7) mg/dL Magnesium 2.1 (1.8-2.4) mg/dl Roberto Results Last 24 Hours: Microbiology 05/28/19 02:55 Aerobic Blood Culture - Preliminary Blood - Venous NO GROWTH AFTER 2 DAYS Anaerobic Blood Culture - Preliminary NO GROWTH AFTER 2 DAYS 05/28/19 03:05 Aerobic Blood Culture - Preliminary Blood - Venous - Lab Draw NO GROWTH AFTER 2 DAYS Anaerobic Blood Culture - Preliminary NO GROWTH AFTER 2 DAYS Med Orders - Current: Current Medications Acetaminophen (Tylenol) 650 mg PO Q4H PRN PRN Reason: Pain/Fever Last Admin: 05/28/19 19:05 Dose: 650 mg Albuterol/Ipratropium (Duoneb 3.0-0.5 Mg/3 Ml) 3 ml NEB Q4HRRT [facility] Last Admin: 05/30/19 07:02 Dose: 3 ml Benzocaine/Menthol (Cepacol Sore Throat) 1 lozenge MUCMEM Q2H PRN PRN Reason: Sore Throat Budesonide (Pulmicort) 0.5 mg NEB BIDRT [facility] Last Admin: 05/30/19 07:02 Dose: 0.5 mg Enoxaparin Sodium (Lovenox) 40 mg SUBCUT DAILY [facility] Last Admin: 05/29/19 09:32 Dose: 40 mg Guaifenesin (Robitussin) 200 mg PO QID PRN PRN Reason: Cough Last Admin: 05/29/19 17:54 Dose: 200 mg Azithromycin 250 mg/ Sodium (Chloride) 250 mls @ 250 mls/hr IV Q24H [facility] Stop: 06/01/19 10:29 Last Admin: 05/29/19 09:33 Dose: 250 mls/hr Lactated Ringer's (Ringers, Lactated) 1,000 mls @ 100 mls/hr IV ASDIRECTED [facility] Stop: 05/31/19 01:29 Last Admin: 05/30/19 02:38 Dose: 100 mls/hr Methylprednisolone Sodium Succinate (Solu-Medrol) 60 mg IVPUSH DAILY [facility] Ondansetron HCl (Zofran Odt) 4 mg PO Q6H PRN PRN Reason: nausea, able to take PO Ondansetron HCl (Zofran) 4 mg IV Q6H PRN PRN Reason: Nausea/Vomiting Discontinued Medications Albuterol/Ipratropium (Duoneb 3.0-0.5 Mg/3 Ml) 3 ml NEB ONETIME ONE Stop: 05/27/19 22:26 Last Admin: 05/27/19 22:41 Dose: 3 ml Albuterol/Ipratropium (Duoneb 3.0-0.5 Mg/3 Ml) 3 ml NEB ONETIME ONE Stop: 05/27/19 23:20 Last Admin: 05/27/19 23:30 Dose: 3 ml Albuterol/Ipratropium (Duoneb 3.0-0.5 Mg/3 Ml) 3 ml NEB Q6HRRT [facility] Last Admin: 05/28/19 06:58 Dose: 3 ml Magnesium Sulfate 2 gm/ Premix 50 mls @ 25 mls/hr IV ONETIME ONE Stop: 05/28/19 00:25 Last Admin: 05/27/19 22:54 Dose: 25 mls/hr Lactated Ringer's (Ringers, Lactated) 500 mls @ 999 mls/hr IV .BOLUS ONE Stop: 05/28/19 01:01 Last Admin: 05/28/19 00:40 Dose: 999 mls/hr Azithromycin 500 mg/ Sodium (Chloride) 250 mls @ 250 mls/hr IV ONETIME ONE Stop: 05/28/19 03:40 Last Admin: 05/28/19 03:01 Dose: 250 mls/hr Azithromycin 250 mg/ Sodium (Chloride) 250 mls @ 250 mls/hr IV Q24H [facility] Stop: 06/01/19 09:59 Last Admin: 05/29/19 13:29 Dose: Not Given Sodium Chloride (Normal Saline) 1,000 mls @ 100 mls/hr IV ASDIRECTED [facility] Stop: 05/30/19 19:14 Last Admin: 05/29/19 13:36 Dose: 100 mls/hr Methylprednisolone Sodium Succinate (Solu-Medrol) 125 mg IVPUSH ONETIME ONE Stop: 05/27/19 22:27 Last Admin: 05/27/19 22:53 Dose: 125 mg Methylprednisolone Sodium Succinate (Solu-Medrol) 125 mg IVPUSH DAILY [facility] Last Admin: 05/29/19 09:33 Dose: 125 mg Potassium Chloride (Klor-Con M20) 40 meq PO ONETIME ONE Stop: 05/28/19 00:09 Last Admin: 05/28/19 00:41 Dose: 40 meq Prednisone (Prednisone) 40 mg PO WITHBREAKFAST TAL Last Admin: 05/28/19 15:52 Dose: Not Given - Exam Quality Assessment: DVT Prophylaxis. No: Supplemental Oxygen General: Alert, Oriented, Cooperative, No Acute Distress HEENT: Pupils Equal, Pupils Reactive, EOMI, Mucous Membr. Moist/[place] Neck: Supple, Trachea Midline Lungs: Normal Respiratory Effort, Decreased Breath Sounds, Wheezing (minimal right sided ). No: Crackles, Rhonchi Cardiovascular: Regular Rate, Regular Rhythm GI/Abdominal Exam: Normal Bowel Sounds, Soft, Non-Tender, No Distention, No Abnormal Bruit (Female) Exam: Deferred Back Exam: Normal Inspection, Full Range of Motion Extremities: Normal Inspection, Normal Range of Motion, Non-Tender, No Pedal Edema, Normal Capillary Refill Skin: Warm, Dry, Intact Neurological: No New Focal Deficit Psy/Mental Status: Alert, Other (Flat affect ) Sepsis Event Note - Evaluation Sepsis Screening Result: No Definite Risk - Focused Exam Vital Signs: Vital Signs Temp Pulse Resp BP Pulse Ox Pulse Ox 05/30/19 07:03 100 05/30/19 02:35 97.7 F 101 H 16 118/62 95 05/30/19 02:21 99 05/29/19 21:11 97 05/29/19 19:40 97.2 F 88 18 118/77 99 Date Exam was Performed: 05/30/19 Time Exam was Performed: 14:09 - Problem List & Annotations (1) Abnormal chest CT SNOMED Code(s): 003284610, 916917385 Code(s): R93.89 - ABNORMAL FINDINGS ON DX IMAGING OF OTH BODY STRUCTURES Status: Acute Priority: High Current Visit: Yes (2) Acute asthma SNOMED Code(s): 193994777 Code(s): J45.909 - UNSPECIFIED ASTHMA, UNCOMPLICATED Status: Acute Priority: High Current Visit: Yes (3) Acute hypoxemic respiratory failure SNOMED Code(s): 054789221 Code(s): J96.01 - ACUTE RESPIRATORY FAILURE WITH HYPOXIA Status: Acute Priority: High Current Visit: Yes (4) Community acquired pneumonia SNOMED Code(s): 819192439 Code(s): J18.9 - PNEUMONIA, UNSPECIFIED ORGANISM Status: Acute Priority: High Current Visit: Yes Qualifiers: Laterality: unspecified laterality Qualified Code(s): J18.9 - Pneumonia, unspecified organism (5) Ex-smoker SNOMED Code(s): 5404178 Code(s): Z87.891 - PERSONAL HISTORY OF NICOTINE DEPENDENCE Status: Chronic Priority: Medium Current Visit: Yes (6) state SNOMED Code(s): 60342310 Code(s): Z39.2 - ENCOUNTER FOR ROUTINE FOLLOW-UP Status: Chronic Priority: Medium Current Visit: Yes (7) Mycoplasma pneumonia SNOMED Code(s): 35013282 Code(s): J15.7 - PNEUMONIA DUE TO MYCOPLASMA PNEUMONIAE Status: Acute Priority: High Current Visit: Yes Qualifiers: Laterality: unspecified laterality Lung location: unspecified part of lung Qualified Code(s): J15.7 - Pneumonia due to Mycoplasma pneumoniae - Problem List Review Problem List Initiated/Reviewed/Updated: Yes - My Orders Last 24 Hours: My Active Orders 05/29/19 09:30 Azithromycin [Zithromax] 250 mg Sodium Chloride 0.9% [Normal Saline] 250 ml IV Q24H 05/29/19 13:58 Incentive Spirometry [RT Incentive Spirometry] [RC] ASDIRECTED 05/29/19 14:06 Consult to Respiratory Therapy [Respiratory Care Assess and Treatment] [CONS] Routine 05/29/19 14:16 guaiFENesin [Robitussin] 200 mg PO QID PRN 05/29/19 15:30 Lactated Ringers [Ringers, Lactated] 1,000 ml IV ASDIRECTED 05/30/19 09:00 methylPREDNISolone Sod Succ [Solu-MEDROL] 60 mg IVPUSH DAILY - Plan Plan:: Acute hypoxemic respiratory failure Community acquired pneumonia Mycoplasma pneumonia Asthma exacerbation Abnormal chest CT Ex-smoker Diagnosed with asthma as a child Worsening shortness of breath with pleuritic chest pain for 1 week Peak flow 19% (predicted 471) No response to Magnesium and DuoNebs Did get flu shot in ED CT chest with tree in bud appearance PLAN - Scheduled DuoNebs q4h - Solumedrol daily -> decrease dose - Pulmicort BID - RT/Acapella/IS - Peak flow measurements Q4hr - Step. pneumo and influenza swab negative - RVP pending - Mycoplasma POSITIVE - Azithromycin 500mg given in ED - Continue at 250mg for 4 days total - IV fluids as ordered -> stop today on completion of order state 2 months post PLAN - Avoid medications that affect breast milk PROPHYLAXIS DVT-Lovenox due to minimal ambulation, post- state GI- not indicated CODE STATUS: FULL CODE DISPOSITION: Admitted under observation for scheduled neb treatments and peak flow measurements as well as IV ATB. 1-2 more days of care. Will need outpatient pulmonology follow-up.
[2019-05-30] MEDS ORDERED: methylPREDNISolone Sodium Succinate 40 MG/1 ML SDV IVPUSH SCH (09:00)
[2019-05-30] MEDS: Azithromycin 250 MG in Sodium Chloride 0.9% 250 ML IV SCH (09:01)
[2019-05-30] MEDS: Enoxaparin 40 MG/0.4 ML Syringe SUBCUT SCH (09:11)
[2019-05-31] MEDS: Albuterol/Ipratropium 3.0-0.5 MG/3 ML Neb Soln NEB SCH ×3 (02:23→11:45)
[2019-05-31] MEDS: Budesonide 0.5 MG/2 ML Neb Susp NEB SCH (06:00)
[2019-05-31] MEDS: Enoxaparin 40 MG/0.4 ML Syringe SUBCUT SCH (07:59)
[2019-05-31] MEDS ORDERED: Azithromycin 250 MG Tab PO SCH (09:00)
[2019-05-31] MEDS ORDERED: methylPREDNISolone Sodium Succinate 40 MG/1 ML SDV IVPUSH SCH (09:00)
--- NOTE | 2019-05-31 09:42 | PCM.DCSUM1 ---
Discharge Summary - Hospital Course HPI Initial Comments: This is a 24 year old post female who comes to the ED complaining of worsening shortness of breath associated with pleuritic chest pain in the past day. As per patient her and toddler son have had a flu like illness and they have all been sick for about a week. had nasal congestion and significantly productive cough, her son has been having decreasing appetite and she has had a flue like illness with severely worsening shortness of breath that culminated last night when she decided to come in because it was becoming increasing harder to take deep breaths. Diagnosis: Stroke: No - Discharge Data Discharge Date: 05/31/19 (Admit date: 05/28/19) Discharge Disposition: Home, Self-Care 01 Condition: Good - Referral to Home Health Primary Care Physician: Lanie Alexander MD - Discharge Diagnosis/Problem(s) (1) Abnormal chest CT SNOMED Code(s): 589219107, 783752743 ICD Code: R93.89 - ABNORMAL FINDINGS ON DX IMAGING OF OTH BODY STRUCTURES Status: Acute Priority: High Current Visit: Yes (2) Acute asthma SNOMED Code(s): 615467970 ICD Code: J45.909 - UNSPECIFIED ASTHMA, UNCOMPLICATED Status: Acute Priority: High Current Visit: Yes (3) Acute hypoxemic respiratory failure SNOMED Code(s): 420591766 ICD Code: J96.01 - ACUTE RESPIRATORY FAILURE WITH HYPOXIA Status: Acute Priority: High Current Visit: Yes (4) Community acquired pneumonia SNOMED Code(s): 084221507 ICD Code: J18.9 - PNEUMONIA, UNSPECIFIED ORGANISM Status: Acute Priority : High Current Visit: Yes Qualifiers: Laterality: unspecified laterality Qualified Code(s): J18.9 - Pneumonia, unspecified organism (5) Ex-smoker SNOMED Code(s): 5424589 ICD Code: Z87.891 - PERSONAL HISTORY OF NICOTINE DEPENDENCE Status: Chronic Priority: Medium Current Visit: Yes (6) state SNOMED Code(s): 58127419 ICD Code: Z39.2 - ENCOUNTER FOR ROUTINE FOLLOW-UP Status: Chronic Priority: Medium Current Visit: Yes (7) Mycoplasma pneumonia SNOMED Code(s): 03689613 ICD Code: J15.7 - PNEUMONIA DUE TO MYCOPLASMA PNEUMONIAE Status: Acute Priority: High Current Visit: Yes Qualifiers: Laterality: unspecified laterality Lung location: unspecified part of lung Qualified Code(s): J15.7 - Pneumonia due to Mycoplasma pneumoniae - Patient Summary/Data Consults: Consultations 05/29/19 14:06 Consult to Respiratory Therapy [Respiratory Care Assess and Treatment] [CONS] Routine Labs Pending at D/C: Respiratory viral panel Recommended Follow-up Testing/Procedures: Follow-up with PCP within 5-7 days of discharge. Patient would like to establish care in [place]. Follow-up with pulmonology as scheduled. Recommend outpatient PFT once symptoms completely resolve. Hospital Course: Vero was admitted to the floor with Pneumonia. Her infectious workup did return positive for mycoplasma and she was started on 500 mg azithromycin in the ED followed by 250 mg daily dosing on the floor x4 days. She was started on 125 mg daily Solu-Medrol IVP in the ED and this was weaned down on the floor. Respiratory viral panel was obtained however that has not returned. She was getting scheduled nebulizers along with frequent peak flow meter testing , incentive spirometry, and Acapella. She responded well to treatment and does report a cough. Was explained to her that this likely will not resolve for a little while and she should continue to use Mucinex for this. Her were she was on 3 L of oxygen and this was weaned down. Ultimately this was able to be discontinued. Initial CT scan did show "diffuse bilateral tree-in-bud opacities representing infectious etiology." Because of this and the patient's chronic lung problems she was referred to pulmonology as an outpatient. Recommend PFT once symptoms resolve. Appointment was made in [place] and she was instructed to follow-up with this. Home medications were otherwise continued. She was discharged on 1 more day of 250 mg by mouth azithromycin and will have completed treatment at that point. She is currently breast- feeding so we are very cautious with medications to ensure minimal chance of passing on to her child. She does have a home albuterol puffer as well as home albuterol supplies for a nebulizer. Did send 12 medications for 3 times a day 4 days and struck the patient to take this as scheduled. She was also prescribed 200 mg by mouth 4 times a day Robitussin as needed for cough and a Medrol Dosepak. She was instructed to follow-up with her primary care provider in 5-7 days. She would like to establish with a provider in [place] and this was encouraged. She was discharged today. She is instructed to continue use her peak flow meter as well as her incentive spirometer and Acapella until symptoms resolve. She was given a handful of mass and told to continue to wear these until she hears back from os with her respiratory viral panel. This was to prevent spread to her children. From a antibiotic standpoint she will have completed treatment for her mycoplasma tomorrow. - Patient Instructions Diet: Usual Diet as Tolerated Activity: As Tolerated Driving: Do Not Drive (today) Showering/Bathing: May Shower Notify Provider of: Fever, Increased Pain, Nausea and/or Vomiting Other/Special Instructions: Follow-up with your primary care provider within 5- 7 days of discharge. Establish care in [place] as we discussed. Follow-up with pulmonology as scheduled. It is very important you attend this appointment. Resume home medicatoions as indicated. You were given one more dose of Azithromycin (antibiotic). Take this the morning of 06/01/19. After that you will have completed treatment. Continue to utilize your incentive spirometry (clear/blue device you inhale through) and acapella (green tube you blow though) until your symptoms resolve completely. Continue to utilize your peak flow meter as we discussed. Continue to wear a mask around others and especially around your children until your viral panel comes back. We will contact you with the results of that when we recieve them and discuss when to stop wearing these. Should symptoms return or worsen, contact your primary care provider or return to the Emergency Department. - Discharge Plan *PRESCRIPTION DRUG MONITORING PROGRAM REVIEWED*: No *COPY OF PRESCRIPTION DRUG MONITORING REPORT IN PATIENT DUONG: No Prescriptions/Med Rec: Albuterol [Proventil Neb Soln] 1 applic INH TID 4 Days #12 neb Azithromycin [Zithromax] 250 mg PO DAILY #1 tablet guaiFENesin [Robitussin] 200 mg PO QID PRN #2 cup PRN Reason: Cough methylPREDNISolone [Medrol] 4 mg PO ASDIRECTED #1 dosepk Home Medications: Home Meds Albuterol Sulfate [Albuterol Sulfate Hfa] 8.5 gm IH Q4HR PRN #1 hfa.aer.ad 09/03 [Rx] Acetaminophen [Tylenol] 650 mg PO Q4H PRN tablet 03/02/19 [Rx] Ibuprofen [Motrin] 600 mg PO Q6H PRN tablet 03/02/19 [Rx] Budesonide/Formoterol [Symbicort 160-4.5 MCG] 1 puff INH ASDIRECTED 05/27/19 [ History] Albuterol [Proventil Neb Soln] 1 applic INH TID 4 Days #12 neb 05/31/19 [Rx] Azithromycin [Zithromax] 250 mg PO DAILY #1 tablet 05/31/19 [Rx] guaiFENesin [Robitussin] 200 mg PO QID PRN #2 cup 05/31/19 [Rx] methylPREDNISolone [Medrol] 4 mg PO ASDIRECTED #1 dosepk 05/31/19 [Rx] Oxygen Therapy Mode: Room Air Patient Handouts: Cough, Adult, [id number], Community-Acquired Pneumonia, Adult, [id number] Forms: ED Department Discharge Referrals: Sydnie Navarrete NP [Ordering Only Provider] - 06/06/19 10:00 am (please attend the scheduled follow up appointment as listed) Joi Owen MD [Ordering Only Provider] - 07/04/19 11:00 am (This appt. is with a pulomonolgist in [facility], please arrive by 11:00 central time for appt. to check in.) - Discharge Summary/Plan Comment DC Time >30 min.: Yes (45 mins ) - General Info Date of Service: 05/31/19 Admission Dx/Problem (Free Text: Admission Diagnosis/Problem Admission Diagnosis/Problem Asthma with acute exacerbation Functional Status: Reports: Pain Controlled, Tolerating Diet, Ambulating, Urinating, Incentive Spirometry, Other (Acapella and peak flow meter ). Denies : New Symptoms - Review of Systems General: Reports: No Symptoms. Denies: Fever, Weakness, Fatigue, Malaise, Chills HEENT: Reports: No Symptoms. Denies: Headaches, Sore Throat Pulmonary: Reports: Shortness of Breath (improved - worse with coughing fits ), Wheezing (improving ). Denies: Pleuritic Chest Pain, Cough, Sputum Cardiovascular: Reports: No Symptoms. Denies: Chest Pain, Palpitations, Dyspnea on Exertion, Edema, Lightheadedness Gastrointestinal: Reports: No Symptoms. Denies: Abdominal Pain, Constipation, Diarrhea, Nausea, Vomiting Genitourinary: Reports: No Symptoms. Denies: Pain Musculoskeletal: Reports: No Symptoms Skin: Reports: No Symptoms. Denies: Cyanosis Neurological: Reports: No Symptoms. Denies: Confusion, Difficulty Walking, Gait Disturbance Psychiatric: Reports: No Symptoms - Patient Data Vitals - Most Recent: Last Vital Signs Temp 97.9 F 05/31/19 07:50 Pulse 85 05/31/19 07:50 Resp 24 H 05/31/19 07:50 BP 126/70 05/31/19 07:50 Pulse Ox 94 L 05/31/19 08:00 Weight - Most Recent: 240 lb 4.8 oz I&O - Last 24 hours: Intake & Output 05/30/19 05/31/19 05/31/19 22:59 06:59 14:59 Intake Total 1780 750 Output Total 1100 800 Balance 680 -50 TYSON Results - Last 24 hrs: Microbiology 05/28/19 02:55 Aerobic Blood Culture - Preliminary Blood - Venous NO GROWTH AFTER 3 DAYS Anaerobic Blood Culture - Preliminary NO GROWTH AFTER 3 DAYS 05/28/19 03:05 Aerobic Blood Culture - Preliminary Blood - Venous - Lab Draw NO GROWTH AFTER 3 DAYS Anaerobic Blood Culture - Preliminary NO GROWTH AFTER 3 DAYS 05/28/19 16:18 Streptococcus pneumoniae Antigen (M - Final Urine Med Orders - Current: Current Medications Acetaminophen (Tylenol) 650 mg PO Q4H PRN PRN Reason: Pain/Fever Last Admin: 05/28/19 19:05 Dose: 650 mg Albuterol/Ipratropium (Duoneb 3.0-0.5 Mg/3 Ml) 3 ml NEB Q4HRRT [facility] Last Admin: 05/31/19 02:23 Dose: 3 ml Azithromycin (Zithromax) 250 mg PO DAILY [facility] Stop: 06/01/19 09:01 Last Admin: 05/31/19 07:59 Dose: 250 mg Benzocaine/Menthol (Cepacol Sore Throat) 1 lozenge MUCMEM Q2H PRN PRN Reason: Sore Throat Budesonide (Pulmicort) 0.5 mg NEB BIDRT [facility] Last Admin: 05/30/19 20:43 Dose: 0.5 mg Enoxaparin Sodium (Lovenox) 40 mg SUBCUT DAILY [facility] Last Admin: 05/31/19 07:59 Dose: Not Given Guaifenesin (Robitussin) 200 mg PO QID PRN PRN Reason: Cough Last Admin: 05/29/19 17:54 Dose: 200 mg Methylprednisolone Sodium Succinate (Solu-Medrol) 40 mg IVPUSH DAILY [facility] Last Admin: 05/31/19 07:59 Dose: 40 mg Ondansetron HCl (Zofran Odt) 4 mg PO Q6H PRN PRN Reason: nausea, able to take PO Ondansetron HCl (Zofran) 4 mg IV Q6H PRN PRN Reason: Nausea/Vomiting Discontinued Medications Albuterol/Ipratropium (Duoneb 3.0-0.5 Mg/3 Ml) 3 ml NEB ONETIME ONE Stop: 05/27/19 22:26 Last Admin: 05/27/19 22:41 Dose: 3 ml Albuterol/Ipratropium (Duoneb 3.0-0.5 Mg/3 Ml) 3 ml NEB ONETIME ONE Stop: 05/27/19 23:20 Last Admin: 05/27/19 23:30 Dose: 3 ml Albuterol/Ipratropium (Duoneb 3.0-0.5 Mg/3 Ml) 3 ml NEB Q6HRRT [facility] Last Admin: 05/28/19 06:58 Dose: 3 ml Magnesium Sulfate 2 gm/ Premix 50 mls @ 25 mls/hr IV ONETIME ONE Stop: 05/28/19 00:25 Last Admin: 05/27/19 22:54 Dose: 25 mls/hr Lactated Ringer's (Ringers, Lactated) 500 mls @ 999 mls/hr IV .BOLUS ONE Stop: 05/28/19 01:01 Last Admin: 05/28/19 00:40 Dose: 999 mls/hr Azithromycin 500 mg/ Sodium (Chloride) 250 mls @ 250 mls/hr IV ONETIME ONE Stop: 05/28/19 03:40 Last Admin: 05/28/19 03:01 Dose: 250 mls/hr Azithromycin 250 mg/ Sodium (Chloride) 250 mls @ 250 mls/hr IV Q24H [facility] Stop: 06/01/19 09:59 Last Admin: 05/29/19 13:29 Dose: Not Given Sodium Chloride (Normal Saline) 1,000 mls @ 100 mls/hr IV ASDIRECTED [facility] Stop: 05/30/19 19:14 Last Admin: 05/29/19 13:36 Dose: 100 mls/hr Azithromycin 250 mg/ Sodium (Chloride) 250 mls @ 250 mls/hr IV Q24H [facility] Stop: 06/01/19 10:29 Last Admin: 05/30/19 09:01 Dose: 250 mls/hr Lactated Ringer's (Ringers, Lactated) 1,000 mls @ 100 mls/hr IV ASDIRECTED [facility] Stop: 05/31/19 01:29 Last Admin: 05/30/19 02:38 Dose: 100 mls/hr Methylprednisolone Sodium Succinate (Solu-Medrol) 125 mg IVPUSH ONETIME ONE Stop: 05/27/19 22:27 Last Admin: 05/27/19 22:53 Dose: 125 mg Methylprednisolone Sodium Succinate (Solu-Medrol) 125 mg IVPUSH DAILY [facility] Last Admin: 05/29/19 09:33 Dose: 125 mg Methylprednisolone Sodium Succinate (Solu-Medrol) 60 mg IVPUSH DAILY [facility] Last Admin: 05/30/19 09:02 Dose: 60 mg Potassium Chloride (Klor-Con M20) 40 meq PO ONETIME ONE Stop: 05/28/19 00:09 Last Admin: 05/28/19 00:41 Dose: 40 meq Prednisone (Prednisone) 40 mg PO WITHBREAKFAST [facility] Last Admin: 05/28/19 15:52 Dose: Not Given - Exam Quality Assessment: Reports: DVT Prophylaxis. Denies: Supplemental Oxygen General: Reports: Alert, Oriented, Cooperative, No Acute Distress HEENT: Reports: Pupils Equal, Pupils Reactive, Mucous Membr. Moist/Welcome Neck: Reports: Supple, Trachea Midline Lungs: Reports: Normal Respiratory Effort, Decreased Breath Sounds, Wheezing ( improved to resolved ). Denies: Crackles, Rhonchi Cardiovascular: Reports: Regular Rate, Regular Rhythm GI/Abdominal Exam: Normal Bowel Sounds, Soft, Non-Tender, No Distention, No Abnormal Bruit (Female) Exam: Deferred Rectal (Female) Exam: Deferred Back Exam: Reports: Normal Inspection, Full Range of Motion Extremities: Normal Inspection, Normal Range of Motion, Non-Tender, No Pedal Edema, Normal Capillary Refill Skin: Reports: Warm, Dry, Intact Neurological: Reports: No New Focal Deficit Psy/Mental Status: Reports: Alert, Normal Affect, Normal Mood
[2019-05-31 12:58] VITALS: BP 141/88; PULSE 102
== END 2019-05-31 13:30 | disposition home or self-care (01) | DRG 193 ==
LOC: JD.ED 21:31 → JD.MS 05-28 12:59 → OBSVTOIN 05-29 11:15
PROVIDERS: ADMIT Internal Medicine; ATTEND Internal Medicine
DX: J15.7 Pneumonia due to Mycoplasma pneumoniae (principal); J96.01 Acute respiratory failure with hypoxia; J45.901 Unspecified asthma with (acute) exacerbation; Z79.51 Long term (current) use of inhaled steroids; K21.9 Gastro-esophageal reflux disease without esophagitis; R93.89 Abnormal findings on diagnostic imaging of other specified body structures; Z87.891 Personal history of nicotine dependence; Z79.899 Other long term (current) drug therapy
CPT/HCPCS: 36415; 36600; 71046; 71046-26; 71275; 71275-26; 80048; 80053; 82803; 83605; 83735; 84100; 84484; 85007; 85025; 85027; 85379; 86738; 87040; 87486; 87581; 87632; 87798; 87804; 87899; 93005; 94640; 94667; 94668; 94761; 96361; 96365; 99284; 99285-25; A9270-GY; J0456; J1650; J2920; J2930; J3475; J7030; J7050; J7120; J7620-GY

== ENCOUNTER 2021-07-13 23:16 | Inpatient (IN) | payer MEDICAID ==
[2021-07-13] MEDS ORDERED: Nalbuphine 10 MG/1 ML Vial IVPUSH PRN (23:37)
[2021-07-13] MEDS ORDERED: Sodium Chloride 0.9% 10 ML Syringe FLUSH PRN ×2 (23:37→23:59)
[2021-07-13] MEDS ORDERED: Lactated Ringers 1,000 ML IV SCH ×2 (23:45)
[2021-07-13] MEDS ORDERED: Metoclopramide 10 MG/2 ML SDV ONE (23:54)
[2021-07-13] MEDS ORDERED: Azithromycin 500 MG in Sodium Chloride 0.9% 250 ML IV ONE (23:55)
[2021-07-13] MEDS ORDERED: ceFAZolin 2 GM in Sodium Chloride 0.9% 50 ML IV ONE (23:59)
[2021-07-13] MEDS ORDERED: Citric Acid/Sodium Citrate Solution 30 ML Cup PO ONE (23:59)
[2021-07-13] MEDS ORDERED: Metoclopramide 10 MG/2 ML SDV IVPUSH ONE (23:59)
[2021-07-14] MEDS: Citric Acid/Sodium Citrate Solution 30 ML Cup ONE ×2 (00:03→04:56)
[2021-07-14] MEDS ORDERED: Lidocaine 1% 4 ML ONE (00:04)
[2021-07-14] MEDS ORDERED: Oxytocin 10 Units/1 ML SDV ONE (00:04)
[2021-07-14] MEDS ORDERED: Succinylcholine/Sod PF 100 MG/5 ML SYRINGE IV ONE ×2 (00:05→00:29)
[2021-07-14] MEDS ORDERED: Propofol 200 MG/20 ML SDV ONE (00:05)
[2021-07-14] MEDS ORDERED: fentaNYL 250 MCG/5 ML SDV ONE (00:23)
[2021-07-14] MEDS ORDERED: ceFAZolin 1 GM Vial ONE (00:29)
[2021-07-14] MEDS ORDERED: Rocuronium 50 MG/5 ML Vial ONE (00:32)
[2021-07-14] MEDS ORDERED: Ketamine 500 mg/10 ML MDV ONE (00:33)
[2021-07-14] MEDS ORDERED: Dexamethasone 4 MG/ML SDV ONE (00:47)
[2021-07-14] MEDS ORDERED: Ondansetron 4 MG/2 ML SDV ONE (00:47)
[2021-07-14] MEDS ORDERED: fentaNYL 100 MCG/2 ML SDV IVPUSH PRN (01:30)
[2021-07-14] MEDS: HYDROmorphone 0.5 MG/0.5 ML Syringe IVPUSH PRN ×2 (01:49→02:12)
[2021-07-14] MEDS ORDERED: diphenhydrAMINE 50 MG/ML SDV IVPUSH PRN (02:41)
[2021-07-14] MEDS ORDERED: Dextrose 5%-Lactated Ringers 1,000 ML IV SCH (02:41)
[2021-07-14] MEDS ORDERED: Acetaminophen/oxyCODONE 325-5 MG Tab PO PRN (02:41)
[2021-07-14] MEDS ORDERED: ePHEDrine 50 MG/ML SDV IVPUSH PRN (02:41)
[2021-07-14] MEDS ORDERED: Naloxone 0.4 MG/ML SDV IVPUSH PRN (02:41)
[2021-07-14] MEDS ORDERED: Ondansetron 4 MG/2 ML SDV IV PRN (02:41)
[2021-07-14] MEDS: Acetaminophen/oxyCODONE 325-5 MG Tab PO PRN ×5 (02:53→23:52)
[2021-07-14] MEDS: Ketorolac 30 MG/ML SDV IVPUSH SCH ×3 (06:40→18:04)
[2021-07-14] MEDS ORDERED: Sodium Chloride 0.9% 10 ML Syringe FLUSH SCH ×2 (09:00)
[2021-07-14] MEDS ORDERED: Sodium Chloride 0.9% 1,000 ML IV SCH (16:30)
[2021-07-14] MEDS: Docusate Sodium 100 MG Cap PO PRN (23:51)
[2021-07-14] MEDS: Ibuprofen 600 MG Tab PO PRN (23:51)
[2021-07-15] MEDS: Acetaminophen/oxyCODONE 325-5 MG Tab PO PRN ×3 (03:55→14:16)
[2021-07-15] MEDS: Ibuprofen 600 MG Tab PO PRN ×2 (06:22→14:16)
[2021-07-15] MEDS ORDERED: Sodium Chloride 0.9% 1,000 ML IV SCH (06:30)
[2021-07-15] MEDS: Docusate Sodium 100 MG Cap PO PRN (08:46)
[2021-07-15 10:57] VITALS: BP 102/65
[2021-07-15 14:09] VITALS: PULSE 84
== END 2021-07-15 16:45 | disposition home or self-care (01) | DRG 787 ==
LOC: JD.OBCHECK 23:16 → JD.OB 23:17 → JD.OBCHECK 23:36 → JD.OB 23:37 → OBSVTOIN 07-14 01:25 → JD.OB 07-14 02:42
PROVIDERS: ADMIT Obstetrics & Gynecology; ATTEND Obstetrics & Gynecology
PROC: 10D00Z1 Extraction of Products of Conception, Low, Open Approach (ICD-10-PCS; principal; 2021-07-14)
DX: O45.93 Premature separation of placenta, unspecified, third trimester (principal); O36.4XX0 Maternal care for intrauterine death, not applicable or unspecified; D62 Acute posthemorrhagic anemia; Z3A.36 36 weeks gestation of pregnancy; Z37.0 Single live birth; O99.02 Anemia complicating childbirth; Z20.822 Contact with and (suspected) exposure to COVID-19
CPT/HCPCS: 01961; 36415; 36430; 51702; 80053; 85007; 85025; 85027; 85384; 85610; 85613; 85730; 86146; 86147; 86592; 86850; 86900; 86901; 86922; 99140; A9270-GY; J0330; J0456; J0690; J1100; J1170; J1885; J2405; J2590; J2704; J2710; J2765; J3010; J7030; J7050; P9016; U0002

== ENCOUNTER 2022-06-14 12:54 | Emergency (ER) | payer MEDICAID ==
[2022-06-14 14:14] VITALS: BP 123/82; PULSE 84
== END 2022-06-14 14:14 | disposition home or self-care (01) ==
LOC: JD.ED 12:54
DX: M25.532 Pain in left wrist (principal); J45.901 Unspecified asthma with (acute) exacerbation; Z79.899 Other long term (current) drug therapy
CPT/HCPCS: 99283

== ENCOUNTER 2023-07-28 03:32 | Inpatient (IN) | payer MEDICAID ==
[2023-07-28] MEDS ORDERED: Sodium Chloride 0.9% 10 ML Syringe FLUSH PRN ×2 (04:20→09:42)
[2023-07-28] MEDS ORDERED: Ondansetron 4 MG/2 ML SDV IVPUSH PRN ×2 (04:20→05:45)
[2023-07-28 04:23] LABS: BASOPHILS ABSOLUTE AUTO 0.1 K/mm3 (0.0-0.2); BASOPHILS PERCENT AUTO 0.5 % (0.0-1.0); EOSINOPHILS ABSOLUTE AUTO 0.2 K/mm3 (0.0-0.4); EOSINOPHILS PERCENT AUTO 1.3 % (0.0-6.0); HEMATOCRIT 35.7 % (37.0-47.0); HEMOGLOBIN 12.2 gm/dl (12.0-16.0); IMMATURE GRAN ABSOLUTE AUTO 0.08 K/mm3 (0.00-0.05); IMMATURE GRAN PERCENT AUTO 0.6 % (0.0-0.4); LYMPHOCYTES ABSOLUTE AUTO 1.7 K/mm3 (1.0-4.8); LYMPHOCYTES PERCENT AUTO 13.5 % (24.0-44.0); MEAN CORPUSCULAR HEMOGLOBIN 30.2 pg (28.0-32.0); MEAN CORPUSCULAR HGB CONC 34.2 g/dl (32.0-36.0); MEAN CORPUSCULAR VOLUME 88.4 fl (83.0-99.0); MEAN PLATELET VOLUME 12.1 fl (9.4-12.3); MONOCYTES ABSOLUTE AUTO 0.7 K/mm3 (0.0-0.8); MONOCYTES PERCENT AUTO 5.2 % (0.0-8.0); NEUTROPHILS ABSOLUTE AUTO 10.2 K/mm3 (1.8-7.7); NEUTROPHILS PERCENT AUTO 78.9 % (41.0-71.0); PLATELET COUNT,PLT 117 K/mm3 (150-400); RED BLOOD CELL COUNT 4.04 M/mm3 (4.10-5.30); WHITE BLOOD CELL COUNT,WBC 12.87 K/mm3 (3.9-11.3)
[2023-07-28] MEDS ORDERED: Lactated Ringers 1,000 ML IV SCH (04:30)
[2023-07-28] MEDS ORDERED: ceFAZolin 1 GM in Sodium Chloride 0.9% 50 ML IV ONE (04:30)
[2023-07-28] MEDS ORDERED: ceFAZolin 2 GM in Sodium Chloride 0.9% 50 ML IV ONE (04:30)
[2023-07-28] MEDS: Metoclopramide 10 MG/2 ML SDV IVPUSH ONE (04:34)
[2023-07-28] MEDS: Citric Acid/Sodium Citrate Solution 30 ML Cup PO ONE (04:34)
[2023-07-28] MEDS ORDERED: Morphine PF 10 MG/10 ML SDV ONE (04:50)
[2023-07-28] MEDS ORDERED: fentaNYL 250 MCG/5 ML SDV ONE (04:51)
[2023-07-28] MEDS ORDERED: Propofol 200 MG/20 ML SDV ONE (04:53)
[2023-07-28] MEDS ORDERED: ceFAZolin 2 GM Vial ONE (05:13)
[2023-07-28] MEDS: Bupivacaine 0.5% 30 ML SDV ONE (05:29)
[2023-07-28] MEDS ORDERED: Oxytocin 10 Units/1 ML SDV ONE ×2 (05:30→06:00)
[2023-07-28 05:38] LABS: A/G RATIO 0.6 (1-2); ALBUMIN 2.5 g/dl (3.4-5.0); ANION GAP 16.7 (5-15); BILIRUBIN TOTAL 0.3 mg/dL (0.2-1.0); BUN/CREATININE RATIO 17.1 (14-18); CALCIUM 8.4 mg/dL (8.5-10.1); CREATININE 0.7 mg/dL (0.55-1.02); EST CRCL DRUG DOSING (CG) 85.18 mL/min; POTASSIUM,K 3.7 mEq/L (3.5-5.1); PROTEIN TOTAL,TP 6.8 g/dl (6.4-8.2)
[2023-07-28] MEDS ORDERED: diphenhydrAMINE 50 MG/ML SDV IVPUSH PRN ×2 (05:45→09:42)
[2023-07-28] MEDS ORDERED: fentaNYL 100 MCG/2 ML SDV IVPUSH PRN (05:45)
[2023-07-28] MEDS ORDERED: dexmedeTOMIDine HCl 200 MCG/2 ML SDV ONE (05:53)
[2023-07-28] MEDS ORDERED: Lactated Ringers 1,000 ML ONE ×2 (05:57)
[2023-07-28 06:03] LABS: PROTHROMBIN TIME 9.7 SECONDS (9.7-12.0)
[2023-07-28 06:06] LABS: PTT,PARTIAL THROMBOPLSTIN TIME 29.5 SECONDS (21.7-31.4)
[2023-07-28 06:08] LABS: FIBRINOGEN 440 mg/dL (187-446)
[2023-07-28 06:20] LABS: INR < 0.93
[2023-07-28] MEDS ORDERED: Sodium Chloride 0.9% 10 ML Syringe FLUSH SCH (09:00)
[2023-07-28] MEDS ORDERED: ePHEDrine 50 MG/ML SDV IVPUSH PRN (09:42)
[2023-07-28] MEDS ORDERED: Ondansetron 4 MG/2 ML SDV IV PRN (09:42)
[2023-07-28] MEDS ORDERED: Naloxone 0.4 MG/ML SDV IVPUSH PRN (09:42)
[2023-07-28] MEDS: Dextrose 5%-Lactated Ringers 1,000 ML IV SCH (10:22)
[2023-07-28] MEDS: Ketorolac 30 MG/ML SDV IVPUSH SCH (11:58)
[2023-07-28] MEDS: Acetaminophen/oxyCODONE 325-5 MG Tab PO PRN (16:03)
[2023-07-28] MEDS: Non-Formulary Medication 1 Each (Budesonide/Formoterol Fumarate [Symbicort 160-4.5 Mcg Inh IH SCH (18:35)
[2023-07-29 06:37] LABS: HEMATOCRIT 29.5 % (37.0-47.0); HEMOGLOBIN 9.9 gm/dl (12.0-16.0); MEAN CORPUSCULAR HEMOGLOBIN 30.5 pg (28.0-32.0); MEAN CORPUSCULAR HGB CONC 33.6 g/dl (32.0-36.0); MEAN CORPUSCULAR VOLUME 90.8 fl (83.0-99.0); MEAN PLATELET VOLUME 10.9 fl (9.4-12.3); PLATELET COUNT,PLT 103 K/mm3 (150-400); RED BLOOD CELL COUNT 3.25 M/mm3 (4.10-5.30); WHITE BLOOD CELL COUNT,WBC 11.97 K/mm3 (3.9-11.3)
[2023-07-29] MEDS: Acetaminophen/oxyCODONE 325-5 MG Tab PO PRN (13:31)
[2023-07-29] MEDS: Ibuprofen 600 MG Tab PO PRN (21:32)
[2023-07-30] MEDS: Docusate Sodium 100 MG Cap PO PRN (05:32)
[2023-07-30 09:17] VITALS: BP 115/80; PULSE 67
== END 2023-07-30 11:24 | disposition home or self-care (01) | DRG 786 ==
LOC: JD.OBCHECK 03:32 → JD.OB 03:37 → JD.OBCHECK 04:20 → JD.OB 05:00 → OBSVTOIN 05:00 → JD.OB 05:34
PROVIDERS: ADMIT Obstetrics & Gynecology; ATTEND Obstetrics & Gynecology
PROC: 10D00Z1 Extraction of Products of Conception, Low, Open Approach (ICD-10-PCS; principal; 2023-07-28 05:00)
DX: O34.211 Maternal care for low transverse scar from previous cesarean delivery (principal); O45.93 Premature separation of placenta, unspecified, third trimester; O99.52 Diseases of the respiratory system complicating childbirth; J45.909 Unspecified asthma, uncomplicated; O36.1930 Maternal care for other isoimmunization, third trimester, not applicable or unspecified; O76 Abnormality in fetal heart rate and rhythm complicating labor and delivery; Z3A.37 37 weeks gestation of pregnancy; Z37.0 Single live birth; Z79.51 Long term (current) use of inhaled steroids; Z87.891 Personal history of nicotine dependence; Z86.16 Personal history of COVID-19
CPT/HCPCS: 36415; 59025; 80053; 85025; 85027; 85384; 85610; 85730; 86592; 86850; 86870; 86900; 86901; 86905; 94762; A9270-GY; J0665; J0690; J1885; J2274; J2590; J2704; J2765; J3010; J3490; J7120; J7121

== ENCOUNTER 2024-06-14 11:09 | Emergency (ER) | payer MEDICAID ==
[2024-06-14 11:42] VITALS: PULSE 82
[2024-06-14] MEDS: Acetaminophen/HYDROcodone 325-5 MG Tab PO ONE (12:17)
[2024-06-14 13:35] VITALS: BP 124/86
== END 2024-06-14 14:00 | disposition home or self-care (01) ==
LOC: JD.ED 11:09
DX: S60.221A Contusion of right hand, initial encounter (principal); J45.909 Unspecified asthma, uncomplicated; Z79.899 Other long term (current) drug therapy; Z86.16 Personal history of COVID-19; W54.0XXA Bitten by dog, initial encounter
CPT/HCPCS: 73120-26-RT; 73120-RT; 99283